=== PATIENT | female | born 1950 | race Caucasian/White ===

== ENCOUNTER 2018-02-26 12:00 | Emergency (ER) | payer MEDICARE ==
[2018-02-26 12:26] VITALS: BP 170/84; PULSE 57; RESP 18; TEMP 97.8
[2018-02-26] MEDS ORDERED: DICYCLOMINE 10 MG/ML 2 ML AMP IM STA (12:46)
[2018-02-26] MEDS ORDERED: SODIUM CHLORIDE 0.9% 1,000 ML IV ONE (12:46)
[2018-02-26] MEDS ORDERED: ONDANSETRON 4 MG/2 ML VIAL IVP STA (12:46)
[2018-02-26] MEDS ORDERED: KETOROLAC 30 MG/ML 1 ML VIAL IVP STA (12:46)
--- NOTE | 2018-02-26 13:09 | ED ---
Nausea/Vomiting/Diarrhea HPI - General Chief complaint: Nausea/Vomiting/Diarrhea Stated complaint: Abd Pain, All over pain Time Seen by Provider: 02/26/18 12:35 Source: patient Mode of arrival: wheelchair Limitations: no limitations - History of Present Illness Initial comments: This is a 67-year-old female who recently moved to the area who presents emergent department for nausea, vomiting, diarrhea, and generalized body aches. She states that the symptoms started this morning and gradually worsened. She states that she's had this in the past and her physicians were unsure what the cause was. She states that she has seen a ice cream scooper in the past however does not see one currently because she just moved here. She does follow with Dr. moreno the she does admit to some nausea and vomiting this morning. Also admits to little bit of diarrhea. She does admit that sometimes this does occur when she is stressed out however will occur at other times as well. She denies any fevers or chills. No dysuria or hematuria. No other acute complaints. - Related Data Home Medications Medication Instructions Recorded Confirmed Atorvastatin Calcium [Lipitor] 20 mg PO HS 02/26/18 02/26/18 DULoxetine HCL [Cymbalta] 20 mg PO HS 02/26/18 02/26/18 Ibuprofen 600 mg PO BID PRN 02/26/18 02/26/18 Levothyroxine Sodium [Synthroid] 50 mcg PO DAILY 02/26/18 02/26/18 Lidocaine HCl [Aspercreme] 1 applic TOPICAL DAILY PRN 02/26/18 02/26/18 traZODone HCL 100 mg PO HS 02/26/18 02/26/18 Previous Rx's Medication Instructions Recorded Dicyclomine [Bentyl] 20 mg PO QID #20 tablet 02/26/18 Ondansetron Odt [Zofran Odt] 4 mg PO Q8HR PRN #12 tab 02/26/18 Allergies Allergy/AdvReac Type Severity Reaction Status Date / Time No Known Allergies Allergy Verified 02/26/18 12:26 Review of Systems ROS Statement: Those systems with pertinent positive or pertinent negative responses have been documented in the HPI. ROS Other: All systems not noted in ROS Statement are negative. Past Medical History Past Medical History: Fibromyalgia, Hyperlipidemia, Rheumatoid Arthritis (RA), Thyroid Disorder Additional Past Medical History / Comment(s): diverticulits History of Any Multi-Drug Resistant Organisms: None Reported Past Surgical History: Hysterectomy Additional Past Surgical History / Comment(s): ear prosthesis Past Psychological History: Depression Smoking Status: Never smoker Past Alcohol Use History: None Reported Past Drug Use History: None Reported General Exam - General Exam Comments Initial Comments: Constitutional: Awake alert Appears comfortable Head: Normocephalic atraumatic Eyes: no conjunctival injection No scleral icterus EOMI Neck: No JVD Supple Heart: Regular rate rhythm normal S1-S2 no murmurs Lungs: Clear to auscultation bilaterally No wheezing No rales Abdomen: Soft nondistended nontender Extremities: Non edematous DP pulses intact Radial pulses intact, patient has diffuse tenderness over multiple joints including her knees and shoulders however no swelling Neuro: A&Ox3 No focal neurologic deficits Psych: Appropriate mood and affect Limitations: no limitations Course Vital Signs 02/26/18 12:21 Temperature 97.8 F Pulse Rate 57 L Respiratory 18 Rate Blood Pressure 170/84 O2 Sat by Pulse 97 Oximetry - Reevaluation(s) Reevaluation #1: 02/26/18 14:44 EKG showing sinus bradycardia with a rate of 50. No abnormal ST segment changes or T-wave inversion. QTC is 432. Other intervals normal. No ectopy. Medical Decision Making - Medical Decision Making Is a 67-year-old female who presented for nausea, vomiting, or diarrhea. The patient felt much improved after medications emergency department. Blood work was reviewed and completely unremarkable. UA negative. Patient was instructed to go home and drink plenty fluids. She will be given Zofran and Bentyl as needed for her symptoms. She was also given GI follow-up since this is a recurring issue for her. Told to return should any worsening or changing symptoms. All questions were answered. - Lab Data Result diagrams: 02/26/18 13:48 02/26/18 13:48 Lab Results 02/26/18 02/26/18 02/26/18 Range/Units 13:48 13:48 15:37 WBC 4.8 (3.8-10.6) k/uL RBC 4.28 (3.80-5.40) m/uL Hgb 13.2 (11.4-16.0) gm/dL Hct 39.8 (34.0-46.0) % MCV 93.0 (80.0-100.0) fL MCH 30.9 (25.0-35.0) pg MCHC 33.2 (31.0-37.0) g/dL RDW 12.7 (11.5-15.5) % Plt Count 156 (150-450) k/uL Neutrophils % 59 % Lymphocytes % 30 % Monocytes % 5 % Eosinophils % 2 % Basophils % 1 % Neutrophils # 2.8 (1.3-7.7) k/uL Lymphocytes # 1.4 (1.0-4.8) k/uL Monocytes # 0.2 (0-1.0) k/uL Eosinophils # 0.1 (0-0.7) k/uL Basophils # 0.1 (0-0.2) k/uL Sodium 139 (137-145) mmol/L Potassium 4.2 (3.5-5.1) mmol/L Chloride 106 (98-107) mmol/L Carbon Dioxide 27 (22-30) mmol/L Anion Gap 6 mmol/L BUN 10 (7-17) mg/dL Creatinine 0.70 (0.52-1.04) mg/dL Est GFR (CKD-EPI)AfAm >90 (>60 ml/min/1.73 sqM) Est GFR (CKD-EPI)NonAf >90 (>60 ml/min/1.73 sqM) Glucose 98 (74-99) mg/dL Calcium 9.2 (8.4-10.2) mg/dL Total Bilirubin 0.4 (0.2-1.3) mg/dL AST 41 H (14-36) U/L ALT 49 (9-52) U/L Alkaline Phosphatase 66 (38-126) U/L Total Protein 6.5 (6.3-8.2) g/dL Albumin 4.0 (3.5-5.0) g/dL Lipase 194 (23-300) U/L Urine Color Colorless Urine Appearance Clear (Clear) Urine pH 7.0 (5.0-8.0) Ur Specific [place] 1.005 (1.001-1.035) Urine Protein Negative (Negative) Urine Glucose (UA) Negative (Negative) Urine Ketones Negative (Negative) Urine Blood Negative (Negative) Urine Nitrite Negative (Negative) Urine Bilirubin Negative (Negative) Urine Urobilinogen <2.0 (<2.0) mg/dL Ur Leukocyte Esterase Negative (Negative) Disposition Clinical Impression: Nausea vomiting and diarrhea Disposition: HOME SELF-CARE Condition: Stable Instructions: Acute Nausea and Vomiting (ED) Prescriptions: Dicyclomine [Bentyl] 20 mg PO QID #20 tablet Ondansetron Odt [Zofran Odt] 4 mg PO Q8HR PRN #12 tab PRN Reason: Nausea Is patient prescribed a controlled substance at d/c from ED?: No Referrals: Jose M Pierre MD [Primary Care Provider] - 1-2 days
[2018-02-26 13:58] LABS: Basophils # (A) 0.1 k/uL (0-0.2); Basophils % (A) 1 %; Eosinophils # (A) 0.1 k/uL (0-0.7); Eosinophils % (A) 2 %; HCT 39.8 % (34.0-46.0); HGB 13.2 gm/dL (11.4-16.0); Lymphocytes # (A) 1.4 k/uL (1.0-4.8); Lymphocytes % (A) 30 %; MCH 30.9 pg (25.0-35.0); MCHC 33.2 g/dL (31.0-37.0); Monocytes # (A) 0.2 k/uL (0-1.0); Monocytes % (A) 5 %; Neutrophils # (A) 2.8 k/uL (1.3-7.7); Neutrophils % (A) 59 %; Platelet Count 156 k/uL (150-450); RBC 4.28 m/uL (3.80-5.40); RDW 12.7 % (11.5-15.5); WBC 4.8 k/uL (3.8-10.6)
[2018-02-26 14:07] LABS: ALT 49 U/L (9-52); AST 41 U/L (14-36); Alkaline Phosphatase 66 U/L (38-126); Anion Gap 6 mmol/L; Blood Urea Nitrogen 10 mg/dL (7-17); Calcium 9.2 mg/dL (8.4-10.2); Carbon Dioxide 27 mmol/L (22-30); Chloride 106 mmol/L (98-107); Glucose 98 mg/dL (74-99); Lipase 194 U/L (23-300); Potassium 4.2 mmol/L (3.5-5.1); Sodium 139 mmol/L (137-145); Total Bilirubin 0.4 mg/dL (0.2-1.3); Total Protein 6.5 g/dL (6.3-8.2)
[2018-02-26 15:45] LABS: Appearance,Urine Clear (Clear); Bilirubin,Urine Negative (Negative); Blood,Urine Negative (Negative); Color,Urine Colorless; Glucose,Urine (UA) Negative (Negative); Ketones,Urine Negative (Negative); Leukocyte Esterase,Urine Negative (Negative); Nitrite,Urine Negative (Negative); Protein,Urine Negative (Negative); Specific Gravity,Urine 1.005 (1.001-1.035); Urobilinogen,Urine <2.0 mg/dL (<2.0)
== END 2018-02-26 16:23 | disposition home or self-care (01) ==
LOC: EC 12:00
DX: R11.2 Nausea with vomiting, unspecified (principal); R19.7 Diarrhea, unspecified; R52 Pain, unspecified; E78.5 Hyperlipidemia, unspecified; E07.9 Disorder of thyroid, unspecified; F32.9 Major depressive disorder, single episode, unspecified; Z79.899 Other long term (current) drug therapy
CPT/HCPCS: 99284; 96374; 96375; 96361; 96372; 36415; 93005; 80053; 83690; 85025; 81003; J0500; J2405; J1885

== ENCOUNTER 2018-08-16 10:39 | Day surgery (SDC) | payer MEDICARE ==
[2018-08-12 10:56] VITALS: BMI 27.8
[~2018-08-16 10:39] MED LIST: LACTATED RINGERS 1,000 ML IV SCH; LIDOCAINE 1% 20 ML VIAL (10MG/ML) FOR IV START INTRADERMA PRN; MIDAZOLAM (PF) 2 MG/2 ML VIAL IV PRN
[2018-08-16 11:00] VITALS: RESP 16; TEMP 97.8
[2018-08-16] MEDS ORDERED: LIDOCAINE 1% INJ 10MG/ML (20 ML MDV) ONE (11:25)
[2018-08-16] MEDS ORDERED: GLYCOPYRROLATE 0.2 MG/ML 2 ML VIAL ONE (11:25)
[2018-08-16] MEDS ORDERED: PROPOFOL 10 MG/ML 20 ML VIAL IV ONE (11:25)
--- NOTE | 2018-08-16 11:50 | P.PCN ---
Date of Procedure: 08/16/18 Procedure(s) Performed: Procedure: Esophagogastroduodenoscopy and biopsy. Preoperative diagnosis: Chronic reflux symptoms requiring therapy. Preoperative diagnosis: 1. Small sliding hiatal hernia with no obvious esophagitis or complicated reflux disease. 2. Mild antral gastritis. 3. Multiple biopsies obtained from the duodenum, antrum and esophagus. Preparation sedation: Was provided by anesthesia. Brief clinical history: The patient is a 67-year-old female who is scheduled for this evaluation because of history of chronic reflux requiring therapy. No alarm symptoms. This evaluation is to assess for esophagitis or complicated reflux disease and to guide therapy. Procedure: With the patient on her left lateral decubitus position and after informed consent and adequate sedation, I passed the Olympus-GIF a 190 video upper endoscope through the cricopharyngeus down the esophagus. GE junction was around 40 cm from the incisors and there was a small sliding hiatal hernia but no obvious esophagitis or Strictures reflux disease. The endoscope was then passed into the stomach which was insufflated with air and inspected in detail including the retroflex view in the cardia. There was some mottling and erythema in the antrum but no ulcers or erosions. Pyloric channel, duodenal bulb, post bulbar area and descending duodenum appeared within normal limits. Because of her symptoms, I obtained biopsies from the duodenum, antrum and esophagus then the endoscope was withdrawn. The patient tolerated the procedure well. Plan: The patient was reassured. Will await biopsy results and make further plans based on her course and biopsy results. I will keep you updated on her progress.
[2018-08-16 12:00] VITALS: BP 145/88; PULSE 79
== END 2018-08-16 12:38 | disposition home or self-care (01) ==
LOC: ORWHC2ENDO 10:39
DX: K29.50 Unspecified chronic gastritis without bleeding (principal); K21.0 Gastro-esophageal reflux disease with esophagitis; K44.9 Diaphragmatic hernia without obstruction or gangrene; M19.90 Unspecified osteoarthritis, unspecified site; I10 Essential (primary) hypertension; E78.5 Hyperlipidemia, unspecified; M79.7 Fibromyalgia; F39 Unspecified mood [affective] disorder; Z79.1 Long term (current) use of non-steroidal anti-inflammatories (NSAID); Z79.890 Hormone replacement therapy; Z79.899 Other long term (current) drug therapy
CPT/HCPCS: 43239; J2001; J2704; 88305; 88342

== ENCOUNTER → 2018-08-23 | Outpatient (CLI) | payer MEDICARE ==
[2018-08-23 13:23] LABS: Basophils # (A) 0.1 k/uL (0-0.2); Basophils % (A) 1 %; Eosinophils # (A) 0.2 k/uL (0-0.7); Eosinophils % (A) 3 %; HCT 40.5 % (34.0-46.0); HGB 13.3 gm/dL (11.4-16.0); Lymphocytes # (A) 1.3 k/uL (1.0-4.8); Lymphocytes % (A) 21 %; MCH 31.4 pg (25.0-35.0); MCHC 32.8 g/dL (31.0-37.0); MCV 95.4 fL (80.0-100.0); Monocytes # (A) 0.3 k/uL (0-1.0); Monocytes % (A) 4 %; Neutrophils # (A) 4.5 k/uL (1.3-7.7); Neutrophils % (A) 70 %; Platelet Count 196 k/uL (150-450); RBC 4.24 m/uL (3.80-5.40); RDW 12.7 % (11.5-15.5); WBC 6.5 k/uL (3.8-10.6)
[2018-08-23 13:28] LABS: Amylase 81 U/L (30-110); Lipase 189 U/L (23-300)
--- NOTE | 2018-08-23 13:38 | CT ---
EXAMINATION TYPE: CT abdomen pelvis wo con DATE OF EXAM: 08/23/2018 HISTORY: Low pelvic/back pain CT DLP: 1061 mGycm. Automated Exposure Control for Dose Reduction was Utilized. TECHNIQUE: CT scan of the abdomen and pelvis is performed without oral or IV contrast. COMPARISON: NONE FINDINGS: Within the limitations of a non-contrast study, the following observations are made. LUNG BASES: Tiny pericardial effusion anteriorly inferiorly is noted. LIVER/GB: Gallbladder has distended margins. PANCREAS: No significant abnormality is seen. SPLEEN: No significant abnormality is seen. ADRENALS: No significant abnormality is seen. KIDNEYS: Right kidney show single 2 mm calculus mid pole level coronal image 53. There is prominence of renal pelvises bilaterally without calyceal dilatation. No left-sided renal calculi are seen. Ther e is asymmetric mild right-sided hydroureter without obstructing calculus clearly seen. No left-sided hydronephrosis obstructing ureter calculi are seen. Distal right ureter slightly more hyperdense mady n expected seen best coronal image 47. Left-sided pelvic phleboliths are seen. No intraluminal calcul us in poorly distended bladder is noted. BOWEL: Low-lying cecum into the right pelvis is noted. No suspicious small or large bowel dilatation is seen. Diverticula in the sigmoid colon are present. Amount of fecal material is somewhat prominent throughout the entire colon. GENITAL ORGANS: Uterus is surgically absent or markedly atrophic. LYMPH NODES: No greater than 1cm abdominal or pelvic lymph nodes are appreciated. OSSEOUS STRUCTURES: Slight grade 1 anterolisthesis L3 on L4. Moderate disc space narrowing with vacuu m disc phenomenon and mild anterior spurring L4-L5 level. Moderate bilateral axial hip joint space lo ss is noted. Transitional-type L5 vertebra is seen. Sclerotic focus left L5 aspect is nonspecific cor onal image 57 favored benign bone island. OTHER: No significant additional abnormality is seen. IMPRESSION: 1. Single 2 mm nonobstructing right renal calculus. Mild diffuse right-sided hydroureter without obst ructing calculus clearly seen. Consider recently passed stone. Presence of diffuse hydroureter with s light hyperdensity distally raises concern for uroepithelial neoplasm particularly if patient has sym ptoms of gross hematuria. Advise urology referral to consider possible follow-up imaging and/or evalu ation.
== END | disposition home or self-care (01) ==
LOC: RADCTMAIN 12:42
PROVIDERS: ATTEND Nurse Practitioner Adult Health
DX: N20.0 Calculus of kidney (principal); N13.4 Hydroureter; R10.9 Unspecified abdominal pain
CPT/HCPCS: 74176; 82150; 83690; 85025

== ENCOUNTER → 2018-10-20 | Outpatient (CLI) | payer MEDICARE ==
--- NOTE | 2018-10-20 12:53 | ECHOS ---
STRESS ECHOCARDIOGRAM INDICATIONS: Dyspnea. MEDICATIONS: Levothyroxine, Cymbalta. BASELINE HEART RATE: 72 BASELINE BLOOD PRESSURE: 139/70 MAXIMUM HEART RATE: 142 MAXIMUM BLOOD PRESSURE: 184/95 85% MPHR: 131 100% MPHR: 154 METS: 5.8 MAXIMUM STAGE REACHED: 2 TOTAL EXERCISE TIME: 4:00 CLINICAL INFORMATION: Baseline EKG revealed normal sinus rhythm without significant ST-T changes. Patient walked on a standard Arik protocol for a total duration of 4 minutes, developed a heart rate of 142 beats per minute which is more than 85% of predicted maximal. She developed fatigue and shortness of breath. Exercise capacity was limited. There was no evidence of any ST-segment changes to indicate ischemia. The patient did not have any angina. There was no significant arrhythmia. By EKG criteria, this is a negative stress test with limited exercise capacity. Resting heart rate was 72 beats per minute peak. Peak heart rate is 142 beats per minute. Resting blood pressure was 139/70 and peak blood pressure was 184/95. By EKG criteria, this is a negative stress test with limited exercise capacity. Baseline echo images revealed normal wall motion and wall thickening of all segments. At peak exercise there was good augmentation of left ventricular wall motion and wall thickening of all segments suggesting that there is no evidence of stress-induced ischemia on this study. MMODL / IJN: [id number] /
== END | disposition home or self-care (01) ==
LOC: RADNMMAIN 09:53
PROVIDERS: ATTEND Family Medicine
DX: R06.00 Dyspnea, unspecified (principal)
CPT/HCPCS: 93351

== ENCOUNTER 2019-03-30 13:30 | Inpatient (IN) | payer MEDICARE ==
[2019-03-30] MEDS ORDERED: SODIUM CHLORIDE 0.9% 500 ML 500 ML IV STA (13:53)
--- NOTE | 2019-03-30 13:58 | ED ---
General Adult HPI - General Chief complaint: Neuro Symptoms/Deficit Stated complaint: trouble speaking/not feeling well Time Seen by Provider: 03/30/19 13:46 Source: patient Mode of arrival: ambulatory Limitations: no limitations - History of Present Illness Initial comments: Dictation was produced using [employer] dictation software. please excuse any grammatical, word or spelling errors. Chief Complaint: 68-year-old female past medical history of fibromyalgia, dyslipidemia and thyroid disease presents with strokelike symptoms. History of Present Illness: Feel she presents with strokelike symptoms. Patient reports that she has been having word finding difficulty starting at 11 AM today. Patient has word finding difficulties. at bedside also endorses this. She does not have any slurred speech. Patient denies any numbness and paresthesia. does note that she does have some mild left facial droop. Denies any headaches. Patient does have bilateral hand paresthesias. The ROS documented in this emergency department record has been reviewed and confirmed by me. Those systems with pertinent positive or negative responses have been documented in the HPI. All other systems are other negative and/or noncontributory. PHYSICAL EXAM: General Impression: Alert and oriented x3, not in acute distress HEENT: Normocephalic atraumatic, extra-ocular movements intact, pupils equal and reactive to light bilaterally, mucous membranes moist. Cardiovascular: Heart regular rate and rhythm, S1&S2 audible, no murmurs, rubs or gallops Chest: Lungs clear to auscultation bilaterally, no rhonchi, no wheeze, no rales Abdomen: Bowel sounds present, abdomen soft, non-tender, non-distended, no organomegaly Musculoskeletal: Pulses present and equal in all extremities, no peripheral edema Motor: no focal deficits noted Neurological: CN II-XII grossly intact, no focal motor or sensory deficits noted Mild left facial droop Skin: Intact with no visualized rashes Psych: Normal affect and mood ED course: 68-year-old female presents with strokelike symptoms starting at 11 AM today. Patient denies any history of stroke. Vital signs upon arrival shows blood pressure 176/101, rest of vital signs within acceptable limits. Patient's NIH is 2. 1.4 finding of the nasolabial fold on the left and 1.4 mild -to-moderate aphasia. Code stroke paged.Abdomen evaluation obtained. CBC, coag panel, metabolic panel is unremarkable. Cardiac enzymes negative. Glucose 100. CT brain and CT angios of the head and neck shows no acute processes. Chest x- ray is nonacute. Discussed patient case with neuro and vascular doctor Dr. Max who does not recommend TPA administration at this time. Patient given aspirin. She'll be admitted with neurology consultation. She understandable agreeable with disposition. She reevaluated bedside and found to be stable medical condition. EKG interpretation: Ventricular rate continues on normal sinus rhythm, WV interval 150, QRS 80, QTc 450. No WV prolongation, no QTC prolongation, no ST or T-wave changes noted. EKG compared to 02/26/2018 showing no changes. Overall, this EKG is unremarkable - Related Data Home Medications Medication Instructions Recorded Confirmed Cholecalciferol [Vitamin D3 (25 5,000 unit PO DAILY 03/30/19 03/30/19 Mcg = 1000 Iu)] DULoxetine HCL [Cymbalta] 30 mg PO BID 03/30/19 03/30/19 Furosemide [Lasix] 20 mg PO DAILY 03/30/19 03/30/19 Hyoscyamine Sulfate [Levsin] 0.125 mg PO Q4H PRN 03/30/19 03/30/19 Lansoprazole [Prevacid] 30 mg PO DAILY 03/30/19 03/30/19 Levothyroxine Sodium [Synthroid] 50 mcg PO DAILY 03/30/19 03/30/19 Testosterone Cypionate 50 mg IM Q14D 03/30/19 03/30/19 [Depo-Testosterone] Allergies Allergy/AdvReac Type Severity Reaction Status Date / Time No Known Allergies Allergy Verified 03/30/19 13:38 Review of Systems ROS Statement: Those systems with pertinent positive or pertinent negative responses have been documented in the HPI. ROS Other: All systems not noted in ROS Statement are negative. Past Medical History Past Medical History: Fibromyalgia, GERD/Reflux, Hyperlipidemia, Osteoarthritis (OA), Thyroid Disorder Additional Past Medical History / Comment(s): pos hx h.pylori,stomach issues and sore throat,diverticulits History of Any Multi-Drug Resistant Organisms: None Reported Past Surgical History: Hysterectomy Additional Past Surgical History / Comment(s): ear prosthesis Past Anesthesia/Blood Transfusion Reactions: No Reported Reaction Past Psychological History: Depression Smoking Status: Never smoker - Past Family History Mother Family Medical History: No Reported History General Exam Limitations: no limitations Course Vital Signs 03/30/19 03/30/19 03/30/19 13:35 14:07 14:15 Temperature 98.1 F 98.1 F Pulse Rate 69 69 66 Respiratory 18 18 20 Rate Blood Pressure 176/101 176/101 167/107 O2 Sat by Pulse 98 98 96 Oximetry 03/30/19 03/30/19 03/30/19 14:22 14:30 14:37 Temperature 97.8 F 98 F Pulse Rate 66 64 63 Respiratory 18 18 16 Rate Blood Pressure 158/95 158/95 158/90 O2 Sat by Pulse 100 98 100 Oximetry 03/30/19 14:52 Temperature 98 F Pulse Rate 71 Respiratory 16 Rate Blood Pressure 183/105 O2 Sat by Pulse 98 Oximetry Medical Decision Making - Lab Data Result diagrams: 03/30/19 13:57 03/30/19 13:57 Lab Results 03/30/19 03/30/19 03/30/19 Range/Units 13:57 13:57 13:57 WBC 6.2 (3.8-10.6) k/uL RBC 4.27 (3.80-5.40) m/uL Hgb 13.2 (11.4-16.0) gm/dL Hct 40.2 (34.0-46.0) % MCV 94.2 (80.0-100.0) fL MCH 31.0 (25.0-35.0) pg MCHC 32.9 (31.0-37.0) g/dL RDW 12.8 (11.5-15.5) % Plt Count 180 (150-450) k/uL Neutrophils % 62 % Lymphocytes % 27 % Monocytes % 5 % Eosinophils % 2 % Basophils % 1 % Neutrophils # 3.8 (1.3-7.7) k/uL Lymphocytes # 1.7 (1.0-4.8) k/uL Monocytes # 0.3 (0-1.0) k/uL Eosinophils # 0.2 (0-0.7) k/uL Basophils # 0.1 (0-0.2) k/uL PT 9.6 (9.0-12.0) sec INR 0.9 (<1.2) APTT 24.5 (22.0-30.0) sec Sodium (137-145) mmol/L Potassium (3.5-5.1) mmol/L Chloride (98-107) mmol/L Carbon Dioxide (22-30) mmol/L Anion Gap mmol/L BUN (7-17) mg/dL Creatinine (0.52-1.04) mg/dL Est GFR (CKD-EPI)AfAm (>60 ml/min/1.73 sqM) Est GFR (CKD-EPI)NonAf (>60 ml/min/1.73 sqM) Glucose (74-99) mg/dL POC Glucose (mg/dL) (75-99) mg/dL POC Glu Canoe Inspector Final ID Calcium (8.4-10.2) mg/dL Total Bilirubin (0.2-1.3) mg/dL AST (14-36) U/L ALT (9-52) U/L Alkaline Phosphatase (38-126) U/L Troponin I <0.012 (0.000-0.034) ng/mL Total Protein (6.3-8.2) g/dL Albumin (3.5-5.0) g/dL 03/30/19 03/30/19 Range/Units 13:57 14:22 WBC (3.8-10.6) k/uL RBC (3.80-5.40) m/uL Hgb (11.4-16.0) gm/dL Hct (34.0-46.0) % MCV (80.0-100.0) fL MCH (25.0-35.0) pg MCHC (31.0-37.0) g/dL RDW (11.5-15.5) % Plt Count (150-450) k/uL Neutrophils % % Lymphocytes % % Monocytes % % Eosinophils % % Basophils % % Neutrophils # (1.3-7.7) k/uL Lymphocytes # (1.0-4.8) k/uL Monocytes # (0-1.0) k/uL Eosinophils # (0-0.7) k/uL Basophils # (0-0.2) k/uL PT (9.0-12.0) sec INR (<1.2) APTT (22.0-30.0) sec Sodium 137 (137-145) mmol/L Potassium 4.4 (3.5-5.1) mmol/L Chloride 104 (98-107) mmol/L Carbon Dioxide 25 (22-30) mmol/L Anion Gap 8 mmol/L BUN 13 (7-17) mg/dL Creatinine 0.67 (0.52-1.04) mg/dL Est GFR (CKD-EPI)AfAm >90 (>60 ml/min/1.73 sqM) Est GFR (CKD-EPI)NonAf >90 (>60 ml/min/1.73 sqM) Glucose 89 (74-99) mg/dL POC Glucose (mg/dL) 100 H (75-99) mg/dL POC Glu Canoe Inspector Final ID [place] Calcium 9.5 (8.4-10.2) mg/dL Total Bilirubin 0.4 (0.2-1.3) mg/dL AST 29 (14-36) U/L ALT 22 (9-52) U/L Alkaline Phosphatase 66 (38-126) U/L Troponin I (0.000-0.034) ng/mL Total Protein 6.8 (6.3-8.2) g/dL Albumin 4.3 (3.5-5.0) g/dL Disposition Clinical Impression: Cerebrovascular accident (CVA) Disposition: ADMITTED IP TO THIS HOSP Condition: Fair Referrals: Mike Lowery MD [Primary Care Provider] - 1-2 days Decision Time: 15:15
[2019-03-30 14:23] LABS: Basophils # (A) 0.1 k/uL (0-0.2); Basophils % (A) 1 %; Eosinophils # (A) 0.2 k/uL (0-0.7); Eosinophils % (A) 2 %; HCT 40.2 % (34.0-46.0); HGB 13.2 gm/dL (11.4-16.0); Lymphocytes # (A) 1.7 k/uL (1.0-4.8); Lymphocytes % (A) 27 %; MCHC 32.9 g/dL (31.0-37.0); MCV 94.2 fL (80.0-100.0); Monocytes # (A) 0.3 k/uL (0-1.0); Monocytes % (A) 5 %; Neutrophils # (A) 3.8 k/uL (1.3-7.7); Neutrophils % (A) 62 %; Platelet Count 180 k/uL (150-450); RBC 4.27 m/uL (3.80-5.40); RDW 12.8 % (11.5-15.5); WBC 6.2 k/uL (3.8-10.6)
--- NOTE | 2019-03-30 14:28 | CT ---
EXAMINATION TYPE: CT brain wo con DATE OF EXAM: 03/30/2019 HISTORY: CODE STROKE Automated Exposure Control for Dose Reduction was Utilized. TECHNIQUE: CT scan of the head is performed without contrast. COMPARISON: None. FINDINGS: There is no acute intracranial hemorrhage or midline shift identified. There is diffuse v entricular and sulcal prominence consistent with diffuse age-related cerebral atrophy. There is low- attenuation in the periventricular white matter presumed on the basis of product of chronic small ves dmitry ischemic change in patient of this age. The globes are intact and the visualized sinuses are lelo ar. IMPRESSION: No acute intracranial hemorrhage or midline shift. There is mild diffuse age-related ce rebral atrophy and fairly advanced white matter changes presumed on basis of product of chronic small vessel ischemic change in patient of this age.
[2019-03-30 14:29] LABS: ALT 22 U/L (9-52); AST 29 U/L (14-36); African American GFR (CKD) >90 (>60 ml/min/1.73 sqM); Albumin 4.3 g/dL (3.5-5.0); Alkaline Phosphatase 66 U/L (38-126); Anion Gap 8 mmol/L; Blood Urea Nitrogen 13 mg/dL (7-17); Calcium 9.5 mg/dL (8.4-10.2); Carbon Dioxide 25 mmol/L (22-30); Chloride 104 mmol/L (98-107); Glucose 89 mg/dL (74-99); Potassium 4.4 mmol/L (3.5-5.1); Sodium 137 mmol/L (137-145); Total Bilirubin 0.4 mg/dL (0.2-1.3); Total Protein 6.8 g/dL (6.3-8.2)
[2019-03-30 14:30] LABS: Glucose,Whole Blood 100 mg/dL (75-99)
[2019-03-30 14:36] LABS: INR 0.9 (<1.2); Partial Thromboplastin Time 24.5 sec (22.0-30.0); Prothrombin Time 9.6 sec (9.0-12.0)
--- NOTE | 2019-03-30 14:56 | CT ---
EXAMINATION TYPE: CT angio head neck DATE OF EXAM: 03/30/2019 HISTORY: CODE STROKE COMPARISON: NONE CT DLP: 1524.50 mGycm. Automated Exposure Control for Dose Reduction was Utilized. TECHNIQUE: CTA scan of the head and neck are performed without and with IV Contrast, patient injecte d with 65 ml mL of Isovue 370, axial images are obtained, coronal and sagittal reformatted images are reviewed. Three-D reconstructed images are created on an independent workstation and reviewed. FINDINGS: Carotid/Vascular Structures: There is three-vessel origin from aortic arch. No significant plaque or stenosis. Right common carotid artery shows normal origin of right brachiocephalic artery. There is n o significant plaque or stenosis of right common or internal carotid arteries including a level carot id bulb. There is a patent external carotid artery without significant plaque or stenosis. No significant plaque or stenosis left common or internal carotid arteries including at level of left carotid bulb. Patent external carotid artery without significant stenosis. There is small caliber right vertebral artery with nonvisualized distal portion. There is dominant le ft vertebral artery patent to basilar artery. No significant stenosis in the posterior circulation. P atent left posterior communicating artery is present. Images of anterior circulation do not show patent anterior communicating artery. There is no signific ant focal stenosis or aneurysmal change identified. Other: No significant incidental finding. IMPRESSION: 1. No significant plaque or stenosis in common or internal carotid arteries bilaterally. 2. No aneurysmal change at the level of [place].
--- NOTE | 2019-03-30 14:57 | XR ---
EXAMINATION TYPE: XR chest 1V portable DATE OF EXAM: 03/30/2019 COMPARISON: NONE HISTORY: Altered mental status and weakness. TECHNIQUE: Single AP portable frontal upright view of the chest is obtained. FINDINGS: There is chronic parenchymal changes without suspicious focal air space opacity, pleural e ffusion, or pneumothorax seen. The cardiac silhouette size is upper limits of normal. Overlying EKG leads are seen. The osseous structures are intact. IMPRESSION: No acute process.
[2019-03-30] MEDS ORDERED: ASPIRIN 81 MG PO STA (14:59)
[2019-03-30] MEDS: SODIUM CHLORIDE 0.9% 1,000 ML IV SCH (15:32)
[2019-03-30] MEDS ORDERED: ACETAMINOPHEN TAB 325 MG TAB PO STA (17:21)
[2019-03-30 21:02] VITALS: BMI 29.2
[2019-03-31] MEDS: SODIUM CHLORIDE 0.9% 1,000 ML IV SCH (01:25)
[2019-03-31] MEDS ORDERED: amLODIPine 5 MG TAB PO ONE (05:15)
[2019-03-31] MEDS: LEVOTHYROXINE 50 MCG TAB PO SCH (06:38)
[2019-03-31 07:27] LABS: Cholesterol 214 mg/dL (<200); HDL Cholesterol 43 mg/dL (40-60); LDL Cholesterol,Calculated 139 mg/dL (0-99); Triglycerides 160 mg/dL (<150)
[2019-03-31] MEDS: ASPIRIN 325 MG TAB PO SCH (08:09)
--- NOTE | 2019-03-31 11:34 | P.CNNES ---
History of Present Illness Consult date: 03/31/19 Reason for Consult: Concern for stroke Chief complaint: Word-finding difficulty, mild L facial droop History of Present Illness: HISTORY OF PRESENT ILLNESS: Thank you for allowing me to evaluate Ms. Princess Dong. Ms. Dong is a 68-year-old R-handed woman with past medical history of fibromyalgia, GERD, hyperlipidemia, osteoarthritis, hypothyroidism, diverticulitis, depression, presenting with word finding difficulty and left facial droop, consulted neurology for concern for stroke. Patient states that around 11:30 am yesterday, she started feeling "off" with walking, when she tried to ask her and a worker about what they'd like to have for lunch, she couldn't quite find the right words. She was trying to say "Quesadilla" but she kept repeating "quesa" without saying the word. Eventually she was able to say the phrase correctly. Her speech symptoms went away after she returned from the CT scanner in the ED. She states that she had a headache last Thursday, which went away after sleeping. Patient also had a 9/10 holocephalic headache, and at the time, her BP was noted to be in SBP 180s. Patient got BP meds only, and her headache improved to a 4/10 pain. She endorses some photophobia but no phonophobia, nausea, vomiting, weakness, numbness or tingling. Patient has been having some numbness in her b/l hands and feet for a long time, and she was told that it was part of her fibromyalgia. patient has seen a neurologist, Dr. Awan, for her symptoms, and he did EMG/NCS which was reported not normal but no diagnosis given. Patient also reports that for years, she's been having "episodes" where she would have droopy eyes, abdominal discomfort, dry heaves, and diarrhea during which she would be "out of commission" for 2 days. She's been getting depo-testosterone shots since about 6 weeks ago, every 2 weeks, to help her with her strength. "droopy eyes" only occurs when she has these episodes, in between, patient does not notice any droopy eyes. Denies ever having similar speech difficulty events. PAST MEDICAL HISTORY: Fibromyalgia, GERD, hyperlipidemia, osteoarthritis, hypothyroidism, diverticulitis, depression, presenting with word finding difficulty and left facial droop, consulted neurology for concern for stroke. PAST SURGICAL HISTORY: Hysterectomy, ear prosthesis HOME MEDICATIONS: Vitamin D, duloxetine, furosemide, Hyoscyamine, levothyroxine, lansoprazole, depo-testosterone ALLERGIES: NKDA SOCIAL HISTORY: Never smoker. EtOH abuse history, quit 3 years ago. FAMILY HISTORY: Father had a stroke. Grandmother had ALS REVIEW OF SYSTEMS: The 14 systems are reviewed and no additional points are identified compared to the review of systems documented history and physical PHYSICAL EXAMINATION: VITAL SIGNS: T 97.8 HR 74 RR 18 BP 166/110 O2 sat 97% on RA GEN.: NAD, pleasant and cooperative HEENT: NCAT, sclera without icterus NECK: Supple SKIN AND EXTREMITIES: Warm to touch, no edema NEURO: MENTAL STATUS: Patient alert and oriented to self, place, time. Able to name the current president. Speech fluent, able to name and repeat, following all commands readily. No right and left disorientation, neglect. CRANIAL NERVES II THROUGH XII: II: Pupils are equal and reactive to light symmetrically. No afferent pupillary defect. Visual gaona are intact. III, IV, : Minimally droopy eyes bilaterally Extraocular movements full. No nystagmus. V: Facial sensation intact from V1-3. VII. Mild L facial droop. VIII: Hearing intact to finger rub bilaterally. IX, X: Symmetric palate elevation. XI: Shoulder shrug intact. XII: Tongue midline without fasciculation or atrophy. MOTOR: Normal bulk/tone. No pronator drift or tremor. Strength is 5/5 t hroughout all 4 extremities. SENSORY: Intact to light touch, temperature, pinprick in all 4 extremities. Romberg is negative. REFLEXES: 2+ throughout. Very sensitive feet, difficulty to assess babinski. Claudia's is absent COORDINATION: Finger to nose intact. No dysmetria. GAIT: Narrow-based and stable. Able to toe/heel/tandem walk DIAGNOSTIC TESTING: LABORATORY: WBC 6.2 hemoglobin 13.2 platelet 180 PT 9.6 INR 0.9 Sodium 137 potassium 4.4 chloride 104, carpal 25 BUN 13 creatinine 0.67 glucose 100 AST 29 ALT 22 alk phos 66 troponin <0.012 Total cholesterol 214 LDL 139 HDL 43 triglycerides 160 IMAGING: CT head without contrast 03/30/2019: No acute intracranial hemorrhage or midline shift. There is mild diffuse age- related cerebral atrophy and fairly advanced white matter changes present on basis of product of chronic small vessel ischemic change and patient of this age. CTA head and neck with contrast 03/31/2019: No significant plaque or stenosis and common or internal carotid arteries bilaterally. No aneurysmal change at the level of [place]. ASSESSMENT: Ms. Dong is a 68-year-old R-handed woman with past medical history of fibromyalgia, GERD, hyperlipidemia, osteoarthritis, hypothyroidism, diverticulitis, depression, presenting with word finding difficulty and left f acial droop, consulted neurology for concern for stroke. L-sided facial droop and speech difficulty possibly localizes to R hemisphere (non-dominant hemisphere) if MRI were to show a stroke, which is unusual, but her symptoms may also correlate with her history of fibromyalgia. Patient has never had MRI brain. Patient with risk factors for stroke, will work-up for stroke and manage. CT Head and CTA Head and Neck unremarkable. RECOMMENDATIONS: 1. MRI brain without contrast 2. Transthoracic echocardiogram 3. Cardiac monitoring (so far, no atrial arrhythmia noted) 4. SBP <160 is okay 5. ASA 81mg qday, Atorvastatin 80mg qhs 6. Labs: A1C, TSH, FLP 7. PT/OT/ST per protocol 8. Discussed with patient about stroke prevention guidelines. Medication compliance, hypertension/diabetes control, lifestyle changes including no smoking, drinking in moderation, losing weight, exercising, eating healthier 9. Neurology will continue to follow 10. Patient will need to follow up with neurologist as outpatient Past Medical History Past Medical History: Fibromyalgia, GERD/Reflux, Hyperlipidemia, Osteoarthritis (OA), Thyroid Disorder Additional Past Medical History / Comment(s): pos hx h.pylori,stomach issues and sore throat,diverticulits History of Any Multi-Drug Resistant Organisms: None Reported Past Surgical History: Hysterectomy Additional Past Surgical History / Comment(s): ear prosthesis Past Anesthesia/Blood Transfusion Reactions: No Reported Reaction Past Psychological History: Anxiety, Depression Smoking Status: Never smoker Past Alcohol Use History: Abuse Additional Past Alcohol Use History / Comment(s): pt states she was treated for alcoholism three years ago. Past Drug Use History: None Reported - Past Family History Mother Family Medical History: Coronary Artery Disease (CAD), Myocardial Infarction ([place]), Renal Disease Additional Family Medical History / Comment(s): 2012 Father Family Medical History: Congestive Heart Failure (CHF), CVA/TIA, Myocardial Infarction ([place]) Additional Family Medical History / Comment(s): [place] in 2006, Medications and Allergies Home Medications Medication Instructions Recorded Confirmed Type Cholecalciferol [Vitamin D3 (25 5,000 unit PO DAILY 03/30/19 03/30/19 History Mcg = 1000 Iu)] DULoxetine HCL [Cymbalta] 30 mg PO BID 03/30/19 03/30/19 History Furosemide [Lasix] 20 mg PO DAILY 03/30/19 03/30/19 History Hyoscyamine Sulfate [Levsin] 0.125 mg PO Q4H PRN 03/30/19 03/30/19 History Lansoprazole [Prevacid] 30 mg PO DAILY 03/30/19 03/30/19 History Levothyroxine Sodium [Synthroid] 50 mcg PO DAILY 03/30/19 03/30/19 History Testosterone Cypionate 50 mg IM Q14D 03/30/19 03/30/19 History [Depo-Testosterone] Allergies Allergy/AdvReac Type Severity Reaction Status Date / Time No Known Allergies Allergy Verified 03/30/19 13:38 Physical Examination - Vital Signs Vital Signs: Vital Signs Temp Pulse Pulse Resp BP BP BP 03/31/19 04:00 97.8 F 74 18 176/112 166/110 03/31/19 00:13 97.8 F 54 L 16 165/85 03/31/19 00:00 97.8 F 54 L 16 165/85 03/30/19 22:13 97.7 F 58 L 16 176/90 03/30/19 21:01 03/30/19 20:13 97.7 F 59 L 18 188/91 03/30/19 20:00 97.7 F 59 L 18 188/91 03/30/19 18:13 98 F 61 18 183/99 03/30/19 17:52 77 16 183/99 03/30/19 16:52 98 F 77 18 175/95 03/30/19 15:52 98 F 58 L 16 182/95 03/30/19 15:12 98 F 63 16 161/99 03/30/19 14:52 98 F 71 16 183/105 03/30/19 14:37 98 F 63 16 158/90 03/30/19 14:30 64 18 158/95 03/30/19 14:22 97.8 F 66 18 158/95 03/30/19 14:15 66 20 167/107 03/30/19 14:07 98.1 F 69 18 176/101 03/30/19 13:35 98.1 F 69 18 176/101 Pulse Ox 03/31/19 04:00 97 03/31/19 00:13 95 03/31/19 00:00 95 03/30/19 22:13 96 03/30/19 21:01 98 03/30/19 20:13 96 03/30/19 20:00 96 03/30/19 18:13 98 03/30/19 17:52 96 03/30/19 16:52 100 03/30/19 15:52 100 03/30/19 15:12 97 03/30/19 14:52 98 03/30/19 14:37 100 03/30/19 14:30 98 03/30/19 14:22 100 03/30/19 14:15 96 03/30/19 14:07 98 03/30/19 13:35 98 Intake and Output 03/30/19 03/31/19 03/31/19 22:59 06:59 14:59 Other: Voiding Method Toilet Toilet # Voids 1 Weight 84.9 kg Results - Laboratory Findings CBC and BMP: 03/30/19 13:57 03/30/19 13:57 Abnormal Lab Findings: Abnormal Labs 03/30/19 03/31/19 14:22 06:45 POC Glucose (mg/dL) 100 H Triglycerides 160 H Cholesterol 214 H LDL Cholesterol, Calc 139 H
[2019-03-31] MEDS: ACETAMINOPHEN TAB 500 MG TAB PO PRN ×2 (17:51→23:42)
[2019-03-31] MEDS ORDERED: NAPROXEN 250 MG TAB PO STA (18:17)
[2019-03-31 18:46] LABS: Glucose,Whole Blood 93 mg/dL (75-99)
[2019-03-31] MEDS ORDERED: LABETALOL 5 MG/ML VIAL MDV IVP PRN (20:57)
--- NOTE | 2019-03-31 22:40 | P.HPIM ---
History of Present Illness H&P Date: 03/31/19 Chief Complaint: Difficulty finding words History of present complaint: This is a 68-year-old patient of Dr. Mike Lowery. Chronic stable medical conditions include fibromyalgia, GERD, hyperlipidemia, Gavin arthritis, hypothyroid thyroid. Patient yesterday close to known which is feeling off- balance and just not feeling right. She did walk to the family and wanted to say quesadillas but he was unable to choose the right words.. Also felt a bit blurring of the vision. And felt that the brain was in a fog. Is also some paresthesia in both the hands. This morning when patient was seen by me in patient is still not feeling back to normal self. Being admitted for the same. Neuro checks were done. Neurology was consulted. Review of systems: GEN.: Tired EYES: None HEENT: None NECK: None RESPIRATORY: None CARDIOVASCULAR: None GASTROINTESTINAL: None GENITOURINARY: None MUSCULOSKELETAL: Joint pains LYMPHATICS: None HEMATOLOGICAL: None PSYCHIATRY: None NEUROLOGICAL: As above Social history: . Was drinking significant amount of alcohol to about 3 years ago. At that time, She would have a bottle of wine and sometimes beer and whiskey along with that. No smoking. Physical examination: VITAL SIGNS: 98.1, 69, 18, 176/101, 98% room air GENERAL: BMI 29.3, sitting up awake. EYES: Pupils equal. Conjunctiva normal. HEENT: External appearance of nose and ears normal, oral cavity grossly normal. NECK: JVD not raised; masses not palpable. HEART: First and second heart sounds are normal; no edema. LUNGS: Respiratory rate normal; clear to auscultation. ABDOMEN: Soft, nontender, liver spleen not palpable, no masses palpable. PSYCH: Alert and oriented x3; mood and affect normal. NEUROLOGICAL: Cranial nerves grossly intact; no facial asymmetry, power and sensation grossly intact, still complaining of sometimes difficult finding word s. LYMPHATICS: No lymph nodes palpable in the axilla and neck INVESTIGATIONS, reviewed in the clinical context: White count 6.2 hemoglobin 13.2 platelets 180 potassium 4.4 creatinine 0.67 LDL 139 triglycerides 160 EKG tracing personally reviewed by me- normal sinus rhythm Computed tomography scan of brain-some age-related changes Chest x-ray finding-personally reviewed by me-shows some possible chronic changes Assessment: -This is a patient presents with finding difficulty or words, for close to 24 hours, including some blurring of the vision with initial computed tomography scan being negative. Stroke still history be ruled out. Otherwise TIA. -Chronic fibromyalgia -GERD -Hyperlipidemia -Primary osteoarthritis -Hypothyroid -Hypertensive urgency Plan: Patient is on aspirin. We'll also add Lipitor. Lovenox for DVT prophylaxis. Home medications were resumed. Neuro checks in place. Neurology was consulted. MRI and 2-D echo was ordered. Care was discussed in detail with the patient. Past Medical History Past Medical History: Fibromyalgia, GERD/Reflux, Hyperlipidemia, Osteoarthritis (OA), Thyroid Disorder Additional Past Medical History / Comment(s): pos hx h.pylori,stomach issues and sore throat,diverticulits, migraine once every few years, pt reports having stress headaches. History of Any Multi-Drug Resistant Organisms: None Reported Past Surgical History: Hysterectomy Additional Past Surgical History / Comment(s): ear prosthesis Past Anesthesia/Blood Transfusion Reactions: No Reported Reaction Past Psychological History: Anxiety, Depression Smoking Status: Never smoker Past Alcohol Use History: Abuse Additional Past Alcohol Use History / Comment(s): pt states she was treated for alcoholism three years ago. Past Drug Use History: None Reported - Past Family History Mother Family Medical History: Coronary Artery Disease (CAD), Myocardial Infarction ([place]), Renal Disease Additional Family Medical History / Comment(s): 2012 Father Family Medical History: Congestive Heart Failure (CHF), CVA/TIA, Myocardial Infarction ([place]) Additional Family Medical History / Comment(s): [place] in 2005, Medications and Allergies Home Medications Medication Instructions Recorded Confirmed Type Cholecalciferol [Vitamin D3 (25 5,000 unit PO DAILY 03/30/19 03/30/19 History Mcg = 1000 Iu)] DULoxetine HCL [Cymbalta] 30 mg PO BID 03/30/19 03/30/19 History Furosemide [Lasix] 20 mg PO DAILY 03/30/19 03/30/19 History Hyoscyamine Sulfate [Levsin] 0.125 mg PO Q4H PRN 03/30/19 03/30/19 History Lansoprazole [Prevacid] 30 mg PO DAILY 03/30/19 03/30/19 History Levothyroxine Sodium [Synthroid] 50 mcg PO DAILY 03/30/19 03/30/19 History Testosterone Cypionate 50 mg IM Q14D 03/30/19 03/30/19 History [Depo-Testosterone] Allergies Allergy/AdvReac Type Severity Reaction Status Date / Time No Known Allergies Allergy Verified 03/30/19 13:38 Physical Exam Vitals: Vital Signs Temp Pulse Pulse Resp BP BP BP 03/31/19 04:00 97.8 F 74 18 176/112 166/110 03/31/19 00:13 97.8 F 54 L 16 165/85 03/31/19 00:00 97.8 F 54 L 16 165/85 03/30/19 22:13 97.7 F 58 L 16 176/90 03/30/19 21:01 03/30/19 20:13 97.7 F 59 L 18 188/91 03/30/19 20:00 97.7 F 59 L 18 188/91 03/30/19 18:13 98 F 61 18 183/99 03/30/19 17:52 77 16 183/99 03/30/19 16:52 98 F 77 18 175/95 03/30/19 15:52 98 F 58 L 16 182/95 03/30/19 15:12 98 F 63 16 161/99 03/30/19 14:52 98 F 71 16 183/105 03/30/19 14:37 98 F 63 16 158/90 03/30/19 14:30 64 18 158/95 03/30/19 14:22 97.8 F 66 18 158/95 03/30/19 14:15 66 20 167/107 03/30/19 14:07 98.1 F 69 18 176/101 03/30/19 13:35 98.1 F 69 18 176/101 Pulse Ox 03/31/19 04:00 97 03/31/19 00:13 95 03/31/19 00:00 95 03/30/19 22:13 96 03/30/19 21:01 98 03/30/19 20:13 96 03/30/19 20:00 96 03/30/19 18:13 98 03/30/19 17:52 96 03/30/19 16:52 100 03/30/19 15:52 100 03/30/19 15:12 97 03/30/19 14:52 98 03/30/19 14:37 100 03/30/19 14:30 98 03/30/19 14:22 100 03/30/19 14:15 96 03/30/19 14:07 98 03/30/19 13:35 98 Intake and Output 03/30/19 03/31/19 03/31/19 22:59 06:59 14:59 Other: Voiding Method Toilet Toilet # Voids 1 Weight 84.9 kg Results CBC & Chem 7: 03/30/19 13:57 03/30/19 13:57 Labs: Abnormal Lab Results - Last 24 Hours (Table) 03/30/19 03/31/19 Range/Units 14:22 06:45 POC Glucose (mg/dL) 100 H (75-99) mg/dL Triglycerides 160 H (<150) mg/dL Cholesterol 214 H (<200) mg/dL LDL Cholesterol, Calc 139 H (0-99) mg/dL Thrombosis Risk Factor Assmnt - Choose All That Apply Any of the Below Risk Factors Present?: Yes Each Factor Represents 1 point: Obesity (BMI >25) Other Risk Factors: Yes Each Risk Factor Represents 2 Points: Age 61-74 years Other congenital or acquired thrombophilia - If yes, enter type in comment: No Thrombosis Risk Factor Assessment Total Risk Factor Score: 3 Thrombosis Risk Factor Assessment Level: Moderate Risk
[2019-03-31] MEDS: ENOXAPARIN 40 MG/0.4 ML SYRINGE SQ SCH (23:43)
[2019-03-31] MEDS: ATORVASTATIN 40 MG TAB PO SCH (23:43)
[2019-04-01] MEDS: SODIUM CHLORIDE 0.9% 1,000 ML IV SCH (00:51)
[2019-04-01] MEDS: DULoxetine HCL 30 MG CAPSULE.DR PO SCH ×3 (00:53→21:05)
[2019-04-01] MEDS: LISINOPRIL-HCTZ 10-12.5 MG 1 EACH TAB PO SCH ×3 (01:00→21:05)
[2019-04-01] MEDS: ACETAMINOPHEN TAB 500 MG TAB PO PRN ×2 (05:31→10:59)
[2019-04-01] MEDS: LEVOTHYROXINE 50 MCG TAB PO SCH (05:33)
[2019-04-01] MEDS: ASPIRIN 325 MG TAB PO SCH (08:55)
[2019-04-01] MEDS: ENOXAPARIN 40 MG/0.4 ML SYRINGE SQ SCH (08:56)
--- NOTE | 2019-04-01 11:01 | CT ---
EXAMINATION TYPE: CODE STROKE: CT brain wo contr DATE OF EXAM: 03/31/2019 COMPARISON: 03/30/2019 INDICATION: Weakness code stroke DLP: 1095.4 mGycm, Automated exposure control for dose reduction was used. CONTRAST: None CT of the brain is performed utilizing 3 mm thick sections through the posterior fossa and 3 mm thick sections through the remaining calvarium. Study is performed within 24 hours of arrival to the hosp [facility]. No abnormal hyperdensity is present to suggest an acute intracranial hemorrhage. No mass lesion is evident. No acute infarcts are evident. There is patchy chronic appearing periventricular white matter hypoint ensity most likely on the basis of chronic white matter ischemic changes. Ventricles and sulci are appropriate for the patient age. Paranasal sinuses and mastoid air cells within the [id number] are clear. Exam is stable from comparison. IMPRESSIONS: 1. Chronic appearing periventricular white matter ischemic changes. 2. No acute intracranial process. 3. Preliminary results were provided by the on-call radiologist.
[2019-04-01 11:50] LABS: Glucose,Whole Blood 109 mg/dL (75-99)
[2019-04-01 14:10] LABS: T4, Free (Free Thyroxine) 1.07 ng/dL (0.78-2.19)
[2019-04-01] MEDS ORDERED: PROCHLORPERAZINE 5 MG TAB PO STA (14:18)
[2019-04-01] MEDS ORDERED: KETOROLAC 30 MG/ML 1 ML VIAL IVP STA (14:18)
--- NOTE | 2019-04-01 14:39 | ECHOF ---
Referral Reason:concern for stroke MEASUREMENTS -------- HEIGHT: 170.2 cm WEIGHT: 84.8 kg BP: 166/110 RVIDd: 3.1 cm (< 3.3) IVSd: 1.2 cm (0.6 - 1.1) LVIDd: 3.7 cm (3.9 - 5.3) LVPWd: 1.3 cm (0.6 - 1.1) IVSs: 1.4 cm LVIDs: 3.2 cm LVPWs: 1.4 cm LA Diam: 4.3 cm (2.7 - 3.8) LAESV Index (A-L): 30.02 ml/m Ao Diam: 2.5 cm (2.0 - 3.7) AV Cusp: 1.8 cm (1.5 - 2.6) LA Diam: 3.7 cm (2.7 - 3.8) MV EXCURSION: 19.523 mm (> 18.000) MV EF SLOPE: 69 mm/s (70 - 150) EPSS: 0.3 cm MV E Mike: 0.43 m/s MV DecT: 244 ms MV A Mike: 0.84 m/s MV E/A Ratio: 0.50 RAP: 5.00 mmHg RVSP: 15.39 mmHg TAPSE: 19.91 mm FINDINGS -------- Sinus rhythm. This was a technically adequate study. The left ventricular size is normal. There is mild concentric left ventricular hypertrophy. Overa ll left ventricular systolic function is normal with, an EF between 55 - 60 %. The right ventricle is normal in size. The left atrium is mildly dilated. LA is midly dilated 29-33ml/m2. The right atrial size is normal. The aortic valve is trileaflet, and appears structurally normal. No aortic stenosis or regurgitation. Mild mitral regurgitation is present. Mild tricuspid regurgitation present. Right ventricular systolic pressure is normal at < 35 mmHg. There is no evidence of pulmonary hypertension. There is no pulmonic regurgitation present. The aortic root size is normal. There is no pericardial effusion. CONCLUSIONS -------- 1. Sinus rhythm. 2. This was a technically adequate study. 3. The left ventricular size is normal. 4. There is mild concentric left ventricular hypertrophy. 5. Overall left ventricular systolic function is normal with, an EF between 55 - 60 %. 6. The right ventricle is normal in size. 7. The left atrium is mildly dilated. 8. LA is midly dilated 29-33ml/m2. 9. The right atrial size is normal. 10. The aortic valve is trileaflet, and appears structurally normal. No aortic stenosis or regurgitat ion. 11. Mild mitral regurgitation is present. 12. Mild tricuspid regurgitation present. 13. Right ventricular systolic pressure is normal at < 35 mmHg. 14. There is no evidence of pulmonary hypertension. 15. There is no pulmonic regurgitation present. 16. The aortic root size is normal. 17. There is no pericardial effusion. DIRECTOR CORPORATE COMMUNICATIONS: Aisha Farah RDCS
[2019-04-01] MEDS: MAGNESIUM SULFATE-D5W PMX 1 GM in DEXTROSE/WATER 1 100ML.BAG IVPB SCH ×2 (15:02→17:40)
--- NOTE | 2019-04-01 15:17 | P.PN ---
Progress Note - Text Progress Note Date: 04/01/19 SUBJECTIVE/INTERVAL EVENTS: Stroke code was called last night. Pt reported significant headache along with having R facial droop. Patient had a 9/10 holocephalic headache during this episode along with high blood pressure. Her blood pressure resolved with no PRN antihypertensives. Patient at this time complaining of 6/10 holocephalic headache, significant photophobia. Patient also having issues with strong smell like cologne that worsens her headache. Patient has had episodes of migraine before, but maybe once several years. She had migraines as a teenager as well. No hx of migraine in her family. 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 Patient reports that with her headache, her L jaw hurt. No blurry/double vision. Patient is having tenderness to palpation in the L temporal bone area. PHYSICAL EXAMINATION: VITAL SIGNS: T 97.9 HR 62 RR 18 BP 145/76 O2 sat 93% on RA GEN.: NAD, pleasant and cooperative HEENT: NCAT, sclera without icterus NECK: Supple SKIN AND EXTREMITIES: Warm to touch, no edema NEURO: MENTAL STATUS: Patient alert and oriented to self, place, time. Able to name the current president. Speech fluent, able to name and repeat, following all commands readily. No right and left disorientation, neglect. CRANIAL NERVES II THROUGH XII: II: Pupils are equal and reactive to light symmetrically. No afferent pupillary defect. Visual gaona are intact. III, IV, : Minimally droopy eyes bilaterally Extraocular movements full. No nystagmus. V: Facial sensation intact from V1-3. VII. Mild L facial droop. VIII: Hearing intact to finger rub bilaterally. IX, X: Symmetric palate elevation. XI: Shoulder shrug intact. XII: Tongue midline without fasciculation or atrophy. MOTOR: Normal bulk/tone. No pronator drift or tremor. Strength is 5/5 throughout all 4 extremities. SENSORY: Intact to light touch, temperature, pinprick in all 4 extremities. Romberg is negative. REFLEXES: 2+ throughout. Very sensitive feet, difficulty to assess babinski. Claudia's is absent COORDINATION: Finger to nose intact. No dysmetria. GAIT: Narrow-based and stable. Able to toe/heel/tandem walk DIAGNOSTIC TESTING: LABORATORY: WBC 6.2 hemoglobin 13.2 platelet 180 PT 9.6 INR 0.9 Sodium 137 potassium 4.4 chloride 104, carpal 25 BUN 13 creatinine 0.67 glucose 100 AST 29 ALT 22 alk phos 66 troponin <0.012 Total cholesterol 214 LDL 139 HDL 43 triglycerides 160 TSH 6.583 T4 1.07 IMAGING: Transthoracic echocardiogram 03/31/2019: Sinus rhythm. LV/RV/RA sizes are normal. LA is mildly dilated. EF 55-60% CT head without contrast 03/30/2019: No acute intracranial hemorrhage or midline shift. There is mild diffuse age- related cerebral atrophy and fairly advanced white matter changes present on basis of product of chronic small vessel ischemic change and patient of this age. CTA head and neck with contrast 03/31/2019: No significant plaque or stenosis and common or internal carotid arteries bilaterally. No aneurysmal change at the level of steb[place] of [place]. ASSESSMENT: Ms. Dong is a 68-year-old R-handed woman with past medical history of fibromyalgia, GERD, hyperlipidemia, osteoarthritis, hypothyroidism, diverticulitis, depression, presenting with word finding difficulty and left facial droop, consulted neurology for concern for stroke. L-sided facial droop and speech difficulty possibly localizes to R hemisphere (non-dominant hemisphere) if MRI were to show a stroke, which is unusual, but her symptoms may also correlate with her history of fibromyalgia. Patient has never had MRI brain. Patient with risk factors for stroke, will work-up for stroke and manage. CT Head and CTA Head and Neck unremarkable. RECOMMENDATIONS: 1. MRI brain without contrast (pending MRI compatibility from [facility]; Dr. Skyler Schneider is not in clinic; nurse will get in touch with MD contaminated land consultant to discuss) 2. We'll give migraine cocktail with Toradol, Compazine, magnesium IV. 3. Will check ESR as well for concern of possible temporal arteritis although patient with no visual deficits. 4. We'll start low-dose Topamax 25 mg twice a day for migraine prophylaxis 5. Patient should be started on magnesium oxide 400 mg twice a day and vitamin B2 400 mg daily for migraine prophylaxis as outpatient 6. Cardiac monitoring (so far, no atrial arrhythmia noted) 7. SBP <160 is okay; pt on lisinopril-hctz 10-12.5 mg 8. ASA 81mg qday, Atorvastatin 80mg qhs 9. Labs: A1C 10. Discussed with patient about stroke prevention guidelines. Medication compliance, hypertension/diabetes control, lifestyle changes including no smoking, drinking in moderation, losing weight, exercising, eating healthier 11. Patient will need to follow up with neurologist as outpatient 12. Neurology is not available over the weekend. However, feel free to [employer] message me over the weekend if you have any questions or concerns
[2019-04-01] MEDS ORDERED: DEXAMETHASONE SOD PHOSPHATE 10 MG/ML 1 ML VIAL IV STA (18:03)
[2019-04-01 18:52] LABS: Hemoglobin A1C 5.8 % (4.0-6.0)
[2019-04-01] MEDS: TOPIRAMATE 25 MG TAB PO SCH (21:05)
[2019-04-01] MEDS: ATORVASTATIN 40 MG TAB PO SCH (21:05)
--- NOTE | 2019-04-01 22:49 | P.PN ---
Progress Note - Text Progress Note Date: 04/01/19 Interval history: This is a 68-year-old patient of Dr. Mike Lowery. Chronic stable medical con ditions include fibromyalgia, GERD, hyperlipidemia, Gavin arthritis, hypothyroid thyroid. Patient yesterday close to known which is feeling off-balance and just not feeling right. She did walk to the family and wanted to say quesadillas but he was unable to choose the right words.. Also felt a bit blurring of the vision. And felt that the brain was in a fog. Is also some paresthesia in both the hands. This morning when patient was seen by me in patient is still not feeling back to normal self. Being admitted for the same. Neuro checks were done. Neurology was consulted. Admitted with possible stroke. Today-patient is having headache. Possible migraine by neurology. Started on Topamax. Because of possible metal in the middle ear surgery done at [facility] in [place], awaiting information on the same MRI is pending. No new symptoms. Review of systems: Was done for constitutional, cardiovascular, GI, pulmonary. Neurology, relevant finding as above Active Medications Acetaminophen (Tylenol Tab) 500 mg PO Q6HR PRN PRN Reason: Fever and/ or Pain Last Admin: 04/01/19 10:59 Dose: 500 mg Documented by: Aspirin (Aspirin) 81 mg PO DAILY [facility] Atorvastatin Calcium (Lipitor) 40 mg PO HS [facility] Last Admin: 04/01/19 21:05 Dose: 40 mg Documented by: Duloxetine HCl (Cymbalta) 30 mg PO BID [facility] Last Admin: 04/01/19 21:05 Dose: 30 mg Documented by: Enoxaparin Sodium (Lovenox) 40 mg SQ DAILY [facility] Last Admin: 04/01/19 08:56 Dose: 40 mg Documented by: Lisinopril/HCTZ (Zestoretic 10-12.5) 1 each PO BID [facility] Last Admin: 04/01/19 21:05 Dose: 1 each Documented by: Labetalol HCl (Trandate) 10 mg IVP Q6HR PRN PRN Reason: Blood Pressure - High Levothyroxine Sodium (Synthroid) 50 mcg PO DAILY@0630 [facility] Last Admin: 04/01/19 05:33 Dose: 50 mcg Documented by: Topiramate (Topamax) 25 mg PO BID [facility] Last Admin: 04/01/19 21:05 Dose: 25 mg Documented by: Physical examination: VITAL SIGNS: 97.9, 62, 18, 145 was 36, 93% room air GENERAL: Laying in bed, but tired EYES: Pupils equal. Conjunctiva normal. HEENT: External appearance of nose and ears normal, oral cavity grossly normal. NECK: JVD not raised; masses not palpable. HEART: First and second heart sounds are normal; no edema. LUNGS: Respiratory rate normal; clear to auscultation. ABDOMEN: Soft, nontender, liver spleen not palpable, no masses palpable. PSYCH: Alert and oriented x3; mood and affect normal. NEUROLOGICAL: Cranial nerves grossly intact; no facial asymmetry, power and sensation grossly intact, still complaining of sometimes difficult finding w ords. INVESTIGATIONS, reviewed in the clinical context: Computed tomography scan of brain-this morning negative Admission testing: White count 6.2 hemoglobin 13.2 platelets 180 potassium 4.4 creatinine 0.67 LDL 139 triglycerides 160 EKG tracing personally reviewed by me- normal sinus rhythm Computed tomography scan of brain-some age-related changes Chest x-ray finding-personally reviewed by me-shows some possible chronic changes Assessment: -This is a patient presents with finding difficulty or words, for close to 24 hours, including some blurring of the vision with initial computed tomography scan being negative. Stroke still history be ruled out. Otherwise TIA. -Chronic fibromyalgia -GERD -Hyperlipidemia -Primary osteoarthritis -Hypothyroid -Hypertensive urgency -Migraine Plan: Patient started on Topamax by neurology. Awaiting MRI. Other medications to continue. He discussed with the patient and .
[2019-04-02] MEDS: LEVOTHYROXINE 50 MCG TAB PO SCH (08:17)
[2019-04-02] MEDS: DULoxetine HCL 30 MG CAPSULE.DR PO SCH ×2 (08:43→20:32)
[2019-04-02] MEDS: LISINOPRIL-HCTZ 10-12.5 MG 1 EACH TAB PO SCH ×2 (08:43→20:32)
[2019-04-02] MEDS: TOPIRAMATE 25 MG TAB PO SCH ×2 (08:43→20:32)
[2019-04-02] MEDS: ASPIRIN 81 MG PO SCH (08:43)
[2019-04-02] MEDS: ENOXAPARIN 40 MG/0.4 ML SYRINGE SQ SCH (08:44)
[2019-04-02] MEDS: ACETAMINOPHEN TAB 500 MG TAB PO PRN (10:29)
--- NOTE | 2019-04-02 16:38 | MR ---
EXAMINATION TYPE: MR brain wo con DATE OF EXAM: 04/02/2019 COMPARISON: HISTORY: No prior, difficulty finding words, memory for about 4 days Standard multiplanar, multisequence MRI departmental protocol Multiplanar, multisequence images of the brain were acquired. Diffusion weighted imaging was performe d. FINDINGS: There is mild cerebral cortical atrophy. On the T2 and FLAIR images there is extensive patc hy increased signal in the periventricular white matter. There is coalescent areas that measure up to 1.5 cm. There is 5 mm focus of increased signal in the left thalamus. Diffusion images show no evide nce of cortical infarct. The brainstem is intact. The corpus callosum is intact. Sella turcica appear s normal. IMPRESSION: Extensive coalescent increased signal in the periventricular white matter. I would consider both radiologic technologist zita small vessel ischemia as well as demyelinating disease. No cortical infarct.
--- NOTE | 2019-04-02 17:02 | P.PN ---
Progress Note - Text Progress Note Date: 04/02/19 Interval history: This is a 68-year-old patient of Dr. Mike Lowery. Chronic stable medical con ditions include fibromyalgia, GERD, hyperlipidemia, Gavin arthritis, hypothyroid thyroid. Patient yesterday close to known which is feeling off-balance and just not feeling right. She did walk to the family and wanted to say quesadillas but he was unable to choose the right words.. Also felt a bit blurring of the vision. And felt that the brain was in a fog. Is also some paresthesia in both the hands. This morning when patient was seen by me in patient is still not feeling back to normal self. Being admitted for the same. Neuro checks were done. Neurology was consulted. Admitted with possible stroke. Also started on Topamax for headache./Migraine. Today-was doing better. Up in the hallway. Did have a headache again. Laying down. Did tolerate her diet. Pending information so that MRI can be done. Review of systems: Was done for constitutional, cardiovascular, GI, pulmonary. Neurology, relevant finding as above Active Medications Acetaminophen (Tylenol Tab) 500 mg PO Q6HR PRN PRN Reason: Fever and/ or Pain Last Admin: 04/02/19 10:29 Dose: 500 mg Documented by: Aspirin (Aspirin) 81 mg PO DAILY [facility] Last Admin: 04/02/19 08:43 Dose: 81 mg Documented by: Atorvastatin Calcium (Lipitor) 40 mg PO HS [facility] Last Admin: 04/01/19 21:05 Dose: 40 mg Documented by: Duloxetine HCl (Cymbalta) 30 mg PO BID [facility] Last Admin: 04/02/19 08:43 Dose: 30 mg Documented by: Enoxaparin Sodium (Lovenox) 40 mg SQ DAILY [facility] Last Admin: 04/02/19 08:44 Dose: 40 mg Documented by: Lisinopril/HCTZ (Zestoretic 10-12.5) 1 each PO BID [facility] Last Admin: 04/02/19 08:43 Dose: 1 each Documented by: Labetalol HCl (Trandate) 10 mg IVP Q6HR PRN PRN Reason: Blood Pressure - High Levothyroxine Sodium (Synthroid) 50 mcg PO DAILY@0630 [facility] Last Admin: 04/02/19 08:17 Dose: Not Given Documented by: Topiramate (Topamax) 25 mg PO BID [facility] Last Admin: 04/02/19 08:43 Dose: 25 mg Documented by: Physical examination: VITAL SIGNS: 98.1, 83, 16, 1 31 x 83, 96% room air GENERAL: Laying in bed, tired EYES: Pupils equal. Conjunctiva normal. HEENT: External appearance of nose and ears normal, oral cavity grossly normal. NECK: JVD not raised; masses not palpable. HEART: First and second heart sounds are normal; no edema. LUNGS: Respiratory rate normal; clear to auscultation. ABDOMEN: Soft, nontender, liver spleen not palpable, no masses palpable. PSYCH: Alert and oriented x3; mood and affect normal. NEUROLOGICAL: Cranial nerves grossly intact; no facial asymmetry, power and sensation grossly intact, still complaining of sometimes difficult finding words. INVESTIGATIONS, reviewed in the clinical context: Computed tomography scan of brain-this morning negative Admission testing: White count 6.2 hemoglobin 13.2 platelets 180 potassium 4.4 creatinine 0.67 LDL 139 triglycerides 160 EKG tracing personally reviewed by me- normal sinus rhythm Computed tomography scan of brain-some age-related changes Chest x-ray finding-personally reviewed by me-shows some possible chronic changes Assessment: -This is a patient presents with finding difficulty or words, for close to 24 hours, including some blurring of the vision with initial computed tomography scan being negative. Stroke ruled out. Otherwise TIA. -Chronic fibromyalgia -GERD -Hyperlipidemia -Primary osteoarthritis -Hypothyroid -Hypertensive urgency -Migraine Plan: On Topamax. Ending MRI. Other medications to continue. Encouraged to ambulate been feeling better. Intermittent headache.
[2019-04-02] MEDS: ATORVASTATIN 40 MG TAB PO SCH (20:32)
[2019-04-02] MEDS ORDERED: LACTULOSE 20 GM/30 ML CUP PO ONE (20:37)
[2019-04-02] MEDS ORDERED: MELATONIN 3 MG TABLET PO SCH (21:00)
[2019-04-03] MEDS: LEVOTHYROXINE 50 MCG TAB PO SCH (05:46)
[2019-04-03] MEDS: TOPIRAMATE 25 MG TAB PO SCH (08:16)
[2019-04-03] MEDS: ENOXAPARIN 40 MG/0.4 ML SYRINGE SQ SCH (08:16)
[2019-04-03] MEDS: LISINOPRIL-HCTZ 10-12.5 MG 1 EACH TAB PO SCH (08:16)
[2019-04-03] MEDS: DULoxetine HCL 30 MG CAPSULE.DR PO SCH (08:16)
[2019-04-03] MEDS: ASPIRIN 81 MG PO SCH (08:16)
[2019-04-03 08:20] VITALS: BP 106/72; PULSE 76; RESP 16; TEMP 97.2
--- NOTE | 2019-04-03 09:19 | P.PN ---
Progress Note - Text Progress Note Date: 04/03/19 I did not see the patient today. Reviewed patient's chart, MRI brain done. I reviewed MRI brain myself, extensive leukoariosis, most likely due to microvascular ischemic disease. Progress notes from yesterday says patient has been doing better with headache. I gave her a dose a dexamethasone 10mg IV x1. Will order medrol-dose dangelo. Will also start MgOx 400mg BID for migraine prophylaxis Patient should purchase Vitamin B2 (riboflavin) 400mg qday for migraine prophylaxis. Neurology will sign off at this time. Patient can be discharged from neurological perspective. Patient needs outpatient Neurology follow up within 2-3 weeks of discharge.
[2019-04-03] MEDS ORDERED: MAGNESIUM OXIDE 400 MG TAB PO SCH (09:30)
[2019-04-03] MEDS ORDERED: methylPREDNISolone 4 MG TAB TAPER PO SCH (10:00)
--- NOTE | 2019-04-03 21:53 | P.DS ---
Providers Date of admission: 03/30/19 15:12 Expected date of discharge: 04/03/19 Attending physician: Jimi Lopez Consults: 03/30/19 15:00 Consult Physician Routine Consulting Provider: Christa Mahmood Consult Reason/Comments: stroke symptoms Do you want consulting provider notified?: Yes Primary care physician: Mike Lowery [place] Hospital Course: Hospital course: This is a 68-year-old patient of Dr. Mike Lowery. Chronic stable medical conditions include fibromyalgia, GERD, hyperlipidemia, Gavin arthritis, hypothyroid thyroid. Patient yesterday close to known which is feeling off- balance and just not feeling right. She did walk to the family and wanted to say quesadillas but he was unable to choose the right words.. Also felt a bit blurring of the vision. And felt that the brain was in a fog. Is also some paresthesia in both the hands. This morning when patient was seen by me in patient is still not feeling back to normal self. Being admitted for the same. Neuro checks were done. Neurology was consulted. MRI showed extensive: Some increased signal in the periventricular white matter. Differential includes chronic small vessel ischemia as well as demyelinating disease. No cortical infarct. We will have patient follow up at outpatient neurology. Patient had a Completely resolve. Patient also had a computed tomography scan of the brain, 2-D echo, CT angiogram the brain. All unremarkable. Patient up and about in the hallway today. Consultation: Dr. Mahmood from neurology Physical examination: VITAL SIGNS: 97.2, 76, 16, 106/72, 96% room air GENERAL: Laying in bed, comfortable EYES: Pupils equal. Conjunctiva normal. HEENT: External appearance of nose and ears normal, oral cavity grossly normal. NECK: JVD not raised; masses not palpable. HEART: First and second heart sounds are normal; no edema. LUNGS: Respiratory rate normal; clear to auscultation. ABDOMEN: Soft, nontender, liver spleen not palpable, no masses palpable. PSYCH: Alert and oriented x3; mood and affect normal. NEUROLOGICAL: Cranial nerves grossly intact; no facial asymmetry, power and sensation grossly intact, no further neuro deficits INVESTIGATIONS, reviewed in the clinical context: 2-D echo negative CT angiogram negative MRI of the brain-as above Admission testing: White count 6.2 hemoglobin 13.2 platelets 180 potassium 4.4 creatinine 0.67 LDL 139 triglycerides 160 EKG tracing personally reviewed by me- normal sinus rhythm Computed tomography scan of brain-some age-related changes Chest x-ray finding-personally reviewed by me-shows some possible chronic changes Discharge diagnosis: -Possible TIA. -Chronic fibromyalgia -GERD -Hyperlipidemia -Primary osteoarthritis -Hypothyroid -Hypertensive urgency -Migraine Disposition: Home Patient Condition at Discharge: Stable Plan - Discharge Summary Discharge Rx Participant: No New Discharge Prescriptions: New Aspirin 81 mg PO DAILY chew Atorvastatin [Lipitor] 40 mg PO HS #30 tab Melatonin 3 mg PO HS tablet predniSONE 0 mg PO DIRECTED #10 tab Levothyroxine Sodium [Synthroid] 75 mcg PO DAILY #30 tab Topiramate [Topamax] 25 mg PO BID #60 tab Lisinopril-Hctz 10-12.5 mg [Zestoretic 10-12.5] 1 each PO BID #60 tab Continue Cholecalciferol [Vitamin D3 (25 Mcg = 1000 Iu)] 5,000 unit PO DAILY DULoxetine HCL [Cymbalta] 30 mg PO BID Hyoscyamine Sulfate [Levsin] 0.125 mg PO Q4H PRN PRN Reason: IBS Lansoprazole [Prevacid] 30 mg PO DAILY Discontinued Furosemide [Lasix] 20 mg PO DAILY Levothyroxine Sodium [Synthroid] 50 mcg PO DAILY No Action Testosterone Cypionate [Depo-Testosterone] 50 mg IM Q14D Discharge Medication List Cholecalciferol [Vitamin D3 (25 Mcg = 1000 Iu)] 5,000 unit PO DAILY 03/30/19 [History] DULoxetine HCL [Cymbalta] 30 mg PO BID 03/30/19 [History] Hyoscyamine Sulfate [Levsin] 0.125 mg PO Q4H PRN 03/30/19 [History] Lansoprazole [Prevacid] 30 mg PO DAILY 03/30/19 [History] Testosterone Cypionate [Depo-Testosterone] 50 mg IM Q14D 03/30/19 [History] Aspirin 81 mg PO DAILY chew 04/03/19 [Rx] Atorvastatin [Lipitor] 40 mg PO HS #30 tab 04/03/19 [Rx] Levothyroxine Sodium [Synthroid] 75 mcg PO DAILY #30 tab 04/03/19 [Rx] Lisinopril-Hctz 10-12.5 mg [Zestoretic 10-12.5] 1 each PO BID #60 tab 04/03/19 [Rx] Melatonin 3 mg PO HS tablet 04/03/19 [Rx] Topiramate [Topamax] 25 mg PO BID #60 tab 04/03/19 [Rx] predniSONE 0 mg PO DIRECTED #10 tab 04/03/19 [Rx] Follow up Appointment(s)/Referral(s): Mike Lowery MD [Primary Care Provider] - 1-2 days Amol Awan MD [STAFF PHYSICIAN] - 3 Days Discharge Disposition: HOME SELF-CARE
== END 2019-04-03 12:40 | disposition home or self-care (01) | DRG 69 ==
LOC: EC 13:30 → 3SCARD 15:12
PROVIDERS: ADMIT Hospitalist; ATTEND Hospitalist
DX: G45.9 Transient cerebral ischemic attack, unspecified (principal); I16.0 Hypertensive urgency; E03.9 Hypothyroidism, unspecified; E78.5 Hyperlipidemia, unspecified; F32.9 Major depressive disorder, single episode, unspecified; F41.9 Anxiety disorder, unspecified; G43.909 Migraine, unspecified, not intractable, without status migrainosus; K21.9 Gastro-esophageal reflux disease without esophagitis; M19.91 Primary osteoarthritis, unspecified site; M79.7 Fibromyalgia; K57.90 Diverticulosis of intestine, part unspecified, without perforation or abscess without bleeding; Z79.890 Hormone replacement therapy; Z79.899 Other long term (current) drug therapy; Z90.710 Acquired absence of both cervix and uterus; Z82.3 Family history of stroke; Z82.49 Family history of ischemic heart disease and other diseases of the circulatory system
CPT/HCPCS: 36415; 70450; 70496; 70498; 70551; 71045; 80053; 80061; 83036; 84439; 84443; 84484; 85025; 85610; 85652; 85730; 93005; 93306; 94760; 96360; 96361; 99285

== ENCOUNTER 2019-04-04 01:20 | Emergency (ER) | payer MEDICARE ==
[2019-04-04 01:35] LABS: Glucose,Whole Blood 130 mg/dL (75-99)
[2019-04-04 02:10] LABS: Basophils # (A) 0.1 k/uL (0-0.2); Basophils % (A) 1 %; Eosinophils # (A) 0.1 k/uL (0-0.7); Eosinophils % (A) 1 %; HCT 43.9 % (34.0-46.0); HGB 14.8 gm/dL (11.4-16.0); Lymphocytes # (A) 1.9 k/uL (1.0-4.8); Lymphocytes % (A) 20 %; MCH 31.6 pg (25.0-35.0); MCHC 33.8 g/dL (31.0-37.0); MCV 93.4 fL (80.0-100.0); Mean Platelet Volume 8.7; Monocytes # (A) 0.6 k/uL (0-1.0); Monocytes % (A) 6 %; Neutrophils # (A) 6.8 k/uL (1.3-7.7); Neutrophils % (A) 71 %; Platelet Count 193 k/uL (150-450); RDW 12.6 % (11.5-15.5); WBC 9.6 k/uL (3.8-10.6)
--- NOTE | 2019-04-04 02:15 | CT ---
EXAMINATION TYPE: CT brain wo con for TPA DATE OF EXAM: 04/04/2019 COMPARISON: 03/31/2019 HISTORY: weakness CT DLP: 1099.40 mGycm Automated exposure control for dose reduction was used. FINDINGS: There is some hypodensity in the periventricular white matter. There is no mass effect nor midline sh ift. There is no sign of intracranial hemorrhage. Calvarium is intact. Skull base appears intact. IMPRESSION: WHITE MATTER HYPODENSITY CONSISTENT WITH CHRONIC SMALL VESSEL ISCHEMIA UNCHANGED COMPARED TO RECENT E XAM. NO HEMORRHAGE.
--- NOTE | 2019-04-04 02:16 | XR ---
EXAMINATION TYPE: XR chest 2V DATE OF EXAM: 04/04/2019 COMPARISON: March 30, 2019 HISTORY: Weakness TECHNIQUE: Frontal and lateral views of the chest are obtained. FINDINGS: Heart and mediastinum are normal. Lungs are clear. Costophrenic angles are clear. There ar e no hilar masses. There are chest leads. Bony thorax appears intact. IMPRESSION: No active cardiopulmonary disease. No change.
[2019-04-04 02:19] LABS: African American GFR (CKD) 73 (>60 ml/min/1.73 sqM); Alcohol <10 mg/dL; Anion Gap 10 mmol/L; Blood Urea Nitrogen 19 mg/dL (7-17); Calcium 9.2 mg/dL (8.4-10.2); Carbon Dioxide 23 mmol/L (22-30); Chloride 100 mmol/L (98-107); Glucose 124 mg/dL (74-99); Sodium 133 mmol/L (137-145)
[2019-04-04 02:20] LABS: INR 0.9 (<1.2); Prothrombin Time 9.7 sec (9.0-12.0)
[2019-04-04 02:22] LABS: AST 33 U/L (14-36); Albumin 4.2 g/dL (3.5-5.0); Potassium 5.1 mmol/L (3.5-5.1); Total Bilirubin 0.8 mg/dL (0.2-1.3); Total Protein 7.1 g/dL (6.3-8.2)
[2019-04-04 02:23] LABS: ALT 18 U/L (9-52); Alkaline Phosphatase 53 U/L (38-126)
[2019-04-04 02:25] LABS: Partial Thromboplastin Time 21.3 sec (22.0-30.0)
[2019-04-04] MEDS ORDERED: SODIUM CHLORIDE 0.9% 1,000 ML IV ONE (03:33)
[2019-04-04] MEDS ORDERED: ONDANSETRON 4 MG/2 ML VIAL IVP STA (03:33)
--- NOTE | 2019-04-04 03:34 | ED ---
Dizziness HPI - General Chief Complaint: Syncope Stated Complaint: Weakness Time Seen by Provider: 04/04/19 01:31 Source: EMS Mode of arrival: EMS Limitations: no limitations - History of Present Illness Initial Comments: Patient is 68-year-old woman who presents to be evaluated following syncopal episode at home. The patient had been in the bathroom at home and had a bowel movement then while having a bowel moment she began to feel lightheaded and then she did pass out. Patient denied dyspnea, diaphoresis, chest pain or palpitations. MD Complaint: other -: minutes(s) Timing: sudden onset History of Same: No History of Trauma: No Improves With: nothing Worsens With: nothing Associated Symptoms: syncope - Related Data Home Medications Medication Instructions Recorded Confirmed Cholecalciferol [Vitamin D3 (25 5,000 unit PO DAILY 03/30/19 03/30/19 Mcg = 1000 Iu)] DULoxetine HCL [Cymbalta] 30 mg PO BID 03/30/19 03/30/19 Hyoscyamine Sulfate [Levsin] 0.125 mg PO Q4H PRN 03/30/19 03/30/19 Lansoprazole [Prevacid] 30 mg PO DAILY 03/30/19 03/30/19 Testosterone Cypionate 50 mg IM Q14D 03/30/19 03/30/19 [Depo-Testosterone] Previous Rx's Medication Instructions Recorded Aspirin 81 mg PO DAILY chew 04/03/19 Atorvastatin [Lipitor] 40 mg PO HS #30 tab 04/03/19 Levothyroxine Sodium [Synthroid] 75 mcg PO DAILY #30 tab 04/03/19 Lisinopril-Hctz 10-12.5 mg 1 each PO BID #60 tab 04/03/19 [Zestoretic 10-12.5] Melatonin 3 mg PO HS tablet 04/03/19 Topiramate [Topamax] 25 mg PO BID #60 tab 04/03/19 predniSONE 0 mg PO DIRECTED #10 tab 04/03/19 Allergies Allergy/AdvReac Type Severity Reaction Status Date / Time No Known Allergies Allergy Verified 04/04/19 01:32 Review of Systems ROS Statement: Those systems with pertinent positive or pertinent negative responses have been documented in the HPI. ROS Other: All systems not noted in ROS Statement are negative. Constitutional: Denies: fever, chills, weakness Eyes: Denies: eye pain, vision change Respiratory: Denies: cough, dyspnea, wheezes Cardiovascular: Reports: syncope. Denies: chest pain, palpitations, edema Gastrointestinal: Denies: abdominal pain, nausea, vomiting Genitourinary: Denies: dysuria, hematuria Musculoskeletal: Denies: back pain Skin: Denies: rash Neurological: Denies: headache, weakness, numbness Past Medical History Past Medical History: Fibromyalgia, GERD/Reflux, Hyperlipidemia, Osteoarthritis (OA), Thyroid Disorder Additional Past Medical History / Comment(s): pos hx h.pylori,stomach issues and sore throat,diverticulits, migraine once every few years, pt reports having stress headaches. History of Any Multi-Drug Resistant Organisms: None Reported Past Surgical History: Hysterectomy Additional Past Surgical History / Comment(s): ear prosthesis Past Anesthesia/Blood Transfusion Reactions: No Reported Reaction Past Psychological History: Anxiety, Depression Smoking Status: Never smoker Past Alcohol Use History: Abuse Past Drug Use History: None Reported - Past Family History Mother Family Medical History: Coronary Artery Disease (CAD), Myocardial Infarction (ME), Renal Disease Additional Family Medical History / Comment(s): 2012 Father Family Medical History: Congestive Heart Failure (CHF), CVA/TIA, Myocardial Infarction (ME) Additional Family Medical History / Comment(s): ME in 2006, General Exam Limitations: no limitations General appearance: alert, in no apparent distress Head exam: Present: atraumatic, normocephalic, normal inspection Eye exam: Present: normal appearance, PERRL, EOMI. Absent: scleral icterus, conjunctival injection, nystagmus ENT exam: Present: normal oropharynx Neck exam: Present: normal inspection, full ROM Respiratory exam: Present: normal lung sounds bilaterally. Absent: respiratory distress, wheezes, rales, rhonchi, stridor Cardiovascular Exam: Present: regular rate, normal rhythm, normal heart sounds. Absent: systolic murmur, diastolic murmur, rubs, gallop GI/Abdominal exam: Present: soft. Absent: distended, tenderness, guarding, rebound, rigid Extremities exam: Present: normal inspection, normal capillary refill. Absent: pedal edema, calf tenderness Back exam: Present: normal inspection. Absent: CVA tenderness (R), CVA tenderness (L) Neurological exam: Present: alert, oriented X3, CN II-XII intact. Absent: motor sensory deficit Skin exam: Present: warm, dry, intact, normal color. Absent: rash Course Vital Signs 04/04/19 04/04/19 04/04/19 01:22 03:03 03:44 Temperature 97.6 F Pulse Rate 63 66 71 Respiratory 18 17 17 Rate Blood Pressure 127/70 125/80 122/84 O2 Sat by Pulse 99 100 99 Oximetry 04/04/19 04/04/19 05:07 06:45 Temperature 97.8 F 97.8 F Pulse Rate 78 89 Respiratory 16 18 Rate Blood Pressure 120/80 119/86 O2 Sat by Pulse 95 95 Oximetry Medical Decision Making - Medical Decision Making Patient's 68-year-old woman presenting with generalized weakness and lightheadedness. The patient on reevaluation states her main complaint is some nausea. Patient's is at the bedside and states she has been having this problem every 2 weeks or so going back for 3-4 years. She had been seen by physicians in [place] at that time and they state that they were not able to find an exact etiology. Patient was told it may be due to "fibromyalgia." - Lab Data Result diagrams: 04/04/19 01:33 04/04/19 01:33 Lab Results 04/04/19 04/04/19 04/04/19 Range/Units 01:32 01:33 01:33 WBC 9.6 (3.8-10.6) k/uL RBC 4.70 (3.80-5.40) m/uL Hgb 14.8 (11.4-16.0) gm/dL Hct 43.9 (34.0-46.0) % MCV 93.4 (80.0-100.0) fL MCH 31.6 (25.0-35.0) pg MCHC 33.8 (31.0-37.0) g/dL RDW 12.6 (11.5-15.5) % Plt Count 193 (150-450) k/uL Neutrophils % 71 % Lymphocytes % 20 % Monocytes % 6 % Eosinophils % 1 % Basophils % 1 % Neutrophils # 6.8 (1.3-7.7) k/uL Lymphocytes # 1.9 (1.0-4.8) k/uL Monocytes # 0.6 (0-1.0) k/uL Eosinophils # 0.1 (0-0.7) k/uL Basophils # 0.1 (0-0.2) k/uL PT (9.0-12.0) sec INR (<1.2) APTT (22.0-30.0) sec Sodium 133 L (137-145) mmol/L Potassium 5.1 (3.5-5.1) mmol/L Chloride 100 (98-107) mmol/L Carbon Dioxide 23 (22-30) mmol/L Anion Gap 10 mmol/L BUN 19 H (7-17) mg/dL Creatinine 0.94 (0.52-1.04) mg/dL Est GFR (CKD-EPI)AfAm 73 (>60 ml/min/1.73 sqM) Est GFR (CKD-EPI)NonAf 64 (>60 ml/min/1.73 sqM) Glucose 124 H (74-99) mg/dL POC Glucose (mg/dL) 130 H (75-99) mg/dL POC Glu Dog Licenser ID Ana Maria Wolff Calcium 9.2 (8.4-10.2) mg/dL Total Bilirubin 0.8 (0.2-1.3) mg/dL AST 33 (14-36) U/L ALT 18 (9-52) U/L Alkaline Phosphatase 53 (38-126) U/L Troponin I (0.000-0.034) ng/mL Total Protein 7.1 (6.3-8.2) g/dL Albumin 4.2 (3.5-5.0) g/dL Serum Alcohol <10 mg/dL 04/04/19 04/04/19 Range/Units 01:33 01:33 WBC (3.8-10.6) k/uL RBC (3.80-5.40) m/uL Hgb (11.4-16.0) gm/dL Hct (34.0-46.0) % MCV (80.0-100.0) fL MCH (25.0-35.0) pg MCHC (31.0-37.0) g/dL RDW (11.5-15.5) % Plt Count (150-450) k/uL Neutrophils % % Lymphocytes % % Monocytes % % Eosinophils % % Basophils % % Neutrophils # (1.3-7.7) k/uL Lymphocytes # (1.0-4.8) k/uL Monocytes # (0-1.0) k/uL Eosinophils # (0-0.7) k/uL Basophils # (0-0.2) k/uL PT 9.7 (9.0-12.0) sec INR 0.9 (<1.2) APTT 21.3 L (22.0-30.0) sec Sodium (137-145) mmol/L Potassium (3.5-5.1) mmol/L Chloride (98-107) mmol/L Carbon Dioxide (22-30) mmol/L Anion Gap mmol/L BUN (7-17) mg/dL Creatinine (0.52-1.04) mg/dL Est GFR (CKD-EPI)AfAm (>60 ml/min/1.73 sqM) Est GFR (CKD-EPI)NonAf (>60 ml/min/1.73 sqM) Glucose (74-99) mg/dL POC Glucose (mg/dL) (75-99) mg/dL POC Glu Dog Licenser ID Calcium (8.4-10.2) mg/dL Total Bilirubin (0.2-1.3) mg/dL AST (14-36) U/L ALT (9-52) U/L Alkaline Phosphatase (38-126) U/L Troponin I <0.012 (0.000-0.034) ng/mL Total Protein (6.3-8.2) g/dL Albumin (3.5-5.0) g/dL Serum Alcohol mg/dL Disposition Clinical Impression: Vasovagal syncope Disposition: HOME SELF-CARE Condition: Fair Instructions (If sedation given, give patient instructions): Syncope (DC) Is patient prescribed a controlled substance at d/c from ED?: No Referrals: Mike Lowery MD [Primary Care Provider] - 1-2 days
[2019-04-04 05:08] VITALS: TEMP 97.8
[2019-04-04 06:48] VITALS: BP 119/86; PULSE 89; RESP 18
== END 2019-04-04 06:48 | disposition home or self-care (01) ==
LOC: EC 01:20
DX: R55 Syncope and collapse (principal); R11.0 Nausea; R53.1 Weakness; M79.7 Fibromyalgia; K21.9 Gastro-esophageal reflux disease without esophagitis; F32.9 Major depressive disorder, single episode, unspecified; F41.9 Anxiety disorder, unspecified; Z79.890 Hormone replacement therapy; Z79.899 Other long term (current) drug therapy; Z86.69 Personal history of other diseases of the nervous system and sense organs; Z82.3 Family history of stroke
CPT/HCPCS: 36415; 93005; 80053; 84484; 85025; 85610; 85730; 71046; 70450; 99285; 96374; 96361 ×3; G0480; J2405; 80320

== ENCOUNTER → 2019-12-05 | Outpatient (CLI) | payer MEDICARE ==
--- NOTE | 2019-12-19 13:15 | MM ---
Reason for exam: screening (asymptomatic). Last mammogram was performed 3 years and 1 month ago. History: Patient is postmenopausal. Took estrogen for 5 years. Took progesterone for 5 years. Taking other hormone for 6 months. Physical Findings: A clinical breast exam by your physician is recommended on an annual basis and results should be correlated with mammographic findings. MG Screening Mammo w CAD Bilateral CC and MLO view(s) were taken. Prior study comparison: October 30, 2016, mammogram, performed at [place]. August 10, 2014, mammogram, performed at [place]. The breast tissue is heterogeneously dense. This may lower the sensitivity of mammography. There are benign appearing round calcifications bilaterally. Asymmetric breast tissue left medially, stable. There is no discrete abnormality. ASSESSMENT: Benign, BI-RAD 2 RECOMMENDATION: Routine screening mammogram of both breasts in 1 year.
== END | disposition home or self-care (01) ==
LOC: RADMAMWWP 11:47
PROVIDERS: ATTEND Family Medicine
DX: Z12.31 Encounter for screening mammogram for malignant neoplasm of breast (principal)
CPT/HCPCS: 77067

== ENCOUNTER → 2021-03-08 | Outpatient (CLI) | payer MEDICARE ==
[2021-03-08 17:09] LABS: Basophils # (A) 0.07 X 10*3/uL (0.00-0.10); Basophils % (A) 1.8 %; Eosinophils # (A) 0.15 X 10*3/uL (0.04-0.35); Eosinophils % (A) 3.8 %; HCT 41.5 % (37.2-46.3); HGB 13.5 g/dL (12.0-15.0); Lymphocytes % (A) 35.4 %; MCH 31.6 pg (27.0-32.0); MCHC 32.5 g/dL (32.0-37.0); MCV 97.2 fL (80.0-97.0); Mean Platelet Volume 12.7 fL (9.5-12.2); Monocytes # (A) 0.35 X 10*3/uL (0.20-1.00); Monocytes % (A) 8.8 %; Neutrophils # (A) 1.98 X 10*3/uL (1.80-7.70); Neutrophils % (A) 49.9 %; Platelet Count 197 X 10*3/uL (140-440); RBC 4.27 X 10*6/uL (4.10-5.20); RDW 12.9 % (11.5-14.5); WBC 3.96 X 10*3/uL (4.50-10.00)
[2021-03-08 20:24] LABS: Hemoglobin A1C 5.4 % (4.0-6.0)
[2021-03-08 23:44] LABS: ALT 19 U/L (8-44); AST 19 U/L (13-35); African American GFR (CKD) 87.8 (60.0-200.0); Albumin/Globulin Ratio 2.47 (1.60-3.17); Alkaline Phosphatase 79 U/L (41-126); C Reactive Protein <0.4 mg/dL (0.0-0.8); Calcium 9.2 mg/dL (8.7-10.3); Carbon Dioxide 25.1 mmol/L (21.6-31.8); Chloride 106 mmol/L (96-109); Cholesterol 224 mg/dL (0-200); Creatine Kinase 62 U/L (26-186); Globulin 1.9 g/dL (1.6-3.3); Glucose 101 mg/dL (70-110); LDL Cholesterol,Calculated 116.8 mg/dL (0.0-131.0); Non-African American GFR(CKD) 75.8 (60.0-200.0); Potassium 4.3 mmol/L (3.5-5.5); Sodium 141 mmol/L (135-145); Total Bilirubin 0.6 mg/dL (0.3-1.2); Total Protein 6.6 g/dL (6.2-8.2)
== END | disposition home or self-care (01) ==
LOC: LABWHC1 09:45
PROVIDERS: ATTEND Nurse Practitioner Adult Health
DX: E78.5 Hyperlipidemia, unspecified (principal); E03.9 Hypothyroidism, unspecified; I10 Essential (primary) hypertension; R53.81 Other malaise
CPT/HCPCS: 36415; 80053; 80061; 82024; 82550; 83036; 83970; 84439; 84443; 84481; 85025; 86140

== ENCOUNTER → 2021-03-21 | Outpatient (CLI) | payer MEDICARE | END | disposition home or self-care (01) | LOC: LABWHC1 08:02 | PROVIDERS: ATTEND Nurse Practitioner Adult Health | DX: I10 Essential (primary) hypertension (principal); E03.9 Hypothyroidism, unspecified; E78.5 Hyperlipidemia, unspecified; R53.81 Other malaise | CPT/HCPCS: 36415; 82533 ==

== ENCOUNTER → 2021-03-25 | Outpatient (CLI) | payer MEDICARE ==
--- NOTE | 2021-03-27 09:54 | MM ---
Reason for exam: screening (asymptomatic). Last mammogram was performed 1 year and 4 months ago. History: Patient is postmenopausal. Took estrogen for 5 years. Took progesterone for 5 years. Taking other hormone for 6 months. Physical Findings: A clinical breast exam by your physician is recommended on an annual basis and results should be correlated with mammographic findings. MG 3D Screening Mammo W/Cad Bilateral CC and MLO view(s) were taken. Prior study comparison: December 05, 2019, bilateral MG screening mammo w CAD. October 30, 2016, mammogram, performed at [place]. August 10, 2014, mammogram, performed at [place]. The breast tissue is heterogeneously dense. This may lower the sensitivity of mammography. Central medial right CC asymmetric density is more defined but does not appear to persist on 3D images. No MLO correlate. 6 month follow up is recommended. ASSESSMENT: Probably benign, BI-RAD 3 RECOMMENDATION: Follow-up diagnostic mammogram of the right breast in 6 months.
== END | disposition home or self-care (01) ==
LOC: RADMAMWWP 14:05
PROVIDERS: ATTEND Family Medicine
DX: Z12.31 Encounter for screening mammogram for malignant neoplasm of breast (principal); Z78.0 Asymptomatic menopausal state
CPT/HCPCS: 77063; 77067

== ENCOUNTER → 2021-07-03 | Outpatient (CLI) | payer MEDICARE ==
--- NOTE | 2021-07-03 12:59 | US ---
EXAMINATION TYPE: US abdomen complete DATE OF EXAM: 07/03/2021 COMPARISON: CT 08/23/2018 CLINICAL HISTORY: 70-year-old female R10.9 ABDOMINAL PAIN. Epigastric pain EXAM MEASUREMENTS: Liver Length: 16.1 cm Gallbladder Wall: 0.21 cm CBD: 0.35 cm Spleen: 9.5 x 4.0 cm Right Kidney: 11.7 x 5.0 x 5.2 cm Left Kidney: 12.1 x 4.7 x 4.8 cm Pancreas: Obscured by bowel gas Liver: Appears wnl Gallbladder: Appears wnl Evidence for sonographic Peralta's sign: Yes CBD: wnl Spleen: wnl Kidneys: No hydronephrosis. Upper IVC: wnl Abd Aorta: wnl IMPRESSION: Suboptimal visualization of the pancreas. Otherwise, unremarkable sonographic examination of the abdo men.
== END | disposition home or self-care (01) ==
LOC: RADUSWWP 09:26
PROVIDERS: ATTEND Family Medicine
DX: R10.13 Epigastric pain (principal)
CPT/HCPCS: 76700

== ENCOUNTER → 2021-08-06 | Outpatient (CLI) | payer MEDICARE ==
--- NOTE | 2021-08-06 15:37 | NM ---
Nuclear medicine hepatobiliary scan. HISTORY: Pain. DOSAGE: The patient received 8 ounces of ensure plus and 4.4 mCi of Technetium 99m Choletec. FINDINGS: There is normal hepatic extraction. The gallbladder is seen by 10 minutes. There is bilia ry to bowel clearance by 25 minutes. Ejection fraction is 58%. IMPRESSION: 1. Normal hepatobiliary exam
== END | disposition home or self-care (01) ==
LOC: RADNMMAIN 13:06
PROVIDERS: ATTEND Family Medicine
DX: R10.11 Right upper quadrant pain (principal)
CPT/HCPCS: 78226; A9537

== ENCOUNTER → 2021-10-21 | Outpatient (CLI) | payer MEDICARE ==
--- NOTE | 2021-10-21 15:06 | MM ---
Reason for exam: follow-up at short interval from prior study. Last mammogram was performed 7 months ago. History: Patient is postmenopausal. Took estrogen for 5 years. Took progesterone for 5 years. Taking other hormone for 6 months. Physical Findings: A clinical breast exam by your physician is recommended on an annual basis and results should be correlated with mammographic findings. MG 3D Diag Mammo W/Cad RT CC and MLO view(s) were taken of the right breast. Prior study comparison: March 25, 2021, bilateral MG 3d screening mammo w/cad. December 05, 2019, bilateral MG screening mammo w CAD. The breast tissue is heterogeneously dense. This may lower the sensitivity of mammography. Focal asymmetry in the right breast, stable. No significant new findings when compared with previous films. Results were given to the patient verbally at the time of the exam. ASSESSMENT: Benign, BI-RAD 2 RECOMMENDATION: Return to routine screening mammogram schedule for both breasts. Back on schedule.
== END | disposition home or self-care (01) ==
LOC: RADMAMWWP 13:54
PROVIDERS: ATTEND Family Medicine
DX: R92.8 Other abnormal and inconclusive findings on diagnostic imaging of breast (principal); Z78.0 Asymptomatic menopausal state
CPT/HCPCS: 77065; G0279; 77061

== ENCOUNTER → 2022-10-28 | Outpatient (CLI) | payer MEDICARE ==
--- NOTE | 2022-10-28 15:27 | BD ---
EXAMINATION TYPE: Axial Bone Density DATE OF EXAM: 10/28/2022 CLINICAL HISTORY: 72 year old Female. ICD-10 CODE: Z13.820 ENCOUNTER FOR SCREENING FOR OSTEOPOROSIS Height: 66 Weight: 188.6 FRAX RISK QUESTIONS: Alcohol (3 or more units per day): no Family History (Parent hip fracture): yes Glucocorticoids (More than 3mos): yes (Ex: prednisone, prednisolone, methylprednisolone, dexamethasone, and hydrocortisone). History of Fracture in Adulthood: yes Secondary Osteoporosis: 1. Type 1 Diabetes: no 2. Hyperthyroidism: no 3. Menopause before 45: no 4. Malnutrition: no 5. Chronic liver disease: no Rheumatoid Arthritis: no Current Tobacco Use: no RISK FACTORS HISTORY OF: Surgery to Spine/Hip(right/left)/Wrist (right/left): no Family History of Osteoporosis: yes Active: no Diet low in dairy products/other sources of calcium: no Postmenopausal woman: yes Lost more than 2 inches in height since high school: no MEDICATIONS: Prednisone or other steroids: as needed for arthritis Thyroid Medications: thyroid How Lon years Additional History: EXAM MEASUREMENTS: Bone mineral densitometry was performed using the [employer]. Bone mineral density as measured about the Lumbar spine is: ----- L1-L4(G/cm2): 0.970 T Score Values are as follows: ----- L1: -1.1 ----- L2: -1.9 ----- L3: -1.5 ----- L4: -2.5 ----- L1-L4: -1.7 Z Score Values are as follows: ----- L1: -0.1 ----- L2: -0.9 ----- L3: -0.5 ----- L4: -1.5 ----- L1-L4: -0.8 Bone mineral density : baseline Bone mineral density about the R hip (g/cm2): 0.865 Bone mineral density about the L hip (g/cm2): 0.935 T Score values are as follows: -----R Neck: -1.4 -----L Neck: -1.2 -----R Total: -1.1 -----L Total: -0.6 Z Score values are as follows: -----R Neck: -0.2 -----L Neck: 0.1 -----R Total: -0.2 -----L Total: 0.4 Bone mineral density : baseline FRAX%s: The graph provided illustrates a 23.2% chance for a major osteoporotic fx and a 4.2% chance f or the hips probability for fx in 10 years time. IMPRESSION: Osteopenia (T Score between -2.5 and -1). There is slightly increased risk of fracture and the patient may be considered for treatment. Re-Screen 2-5 years. NOTE: T-SCORE=SD OF THE YOUNG ADULT MEAN.
--- NOTE | 2022-10-29 20:53 | MM ---
Reason for Exam: Screening (asymptomatic). Last mammogram was performed 1 year(s) and 8 month(s) ago. Patient History: Menarche at age 14. First Full-Term at age 21. Left ovary removed at age 48. Right ovary removed at age 48. Hysterectomy at age 48. Postmenopausal. Patient used Estrogen for 5 years. Patient used Progesterone for 5 years. Risk Values: Gabriella 5 year model risk: 1.2%. NCI Lifetime model risk: 3.7%. Prior Study Comparison: 12/05/2019 Bilateral Screening Mammogram, [facility]. 03/25/2021 Bilateral Screening Mammogram, [facility]. 10/21/2021 Right Diagnostic Mammogram, [facility]. Tissue Density: The breast tissue is heterogeneously dense. This may lower the sensitivity of mammography. Findings: Analyzed By CAD. There is no suspicious group of microcalcifications or new suspicious mass in either breast. Overall Assessment: Benign, BI-RAD 2 Management: Screening Mammogram of both breasts in 1 year. . Patient should continue monthly self-breast exams. A clinical breast exam by your physician is recommended on an annual basis. This exam should not preclude additional follow-up of suspicious palpable abnormalities. Note on Gabriella scores and lifetime risk: 1. A Gabriella score greater than 3% is considered moderate risk. If this is the case, consider specialist referral to assess eligibility for a risk reducing agent. 2. If overall lifetime risk for the development of breast cancer is 20% or higher, the patient may qualify for future screening with alternating mammogram and breast MRI. Electronically signed and approved by: Nathan Gongora M.D. Radiologist
== END | disposition home or self-care (01) ==
LOC: RADMAMWWP 13:36
PROVIDERS: ATTEND Family Medicine
DX: Z12.31 Encounter for screening mammogram for malignant neoplasm of breast (principal); Z13.820 Encounter for screening for osteoporosis; M85.89 Other specified disorders of bone density and structure, multiple sites; Z78.0 Asymptomatic menopausal state
CPT/HCPCS: 77063; 77067; 77080

== ENCOUNTER → 2022-12-02 | Outpatient (CLI) | payer MEDICARE ==
[~2022-12-02] MED LIST changes: +DOBUTamine DRIP for NUC MED 500 MG in DEXTROSE/WATER 1 250ML.BAG IV PRN; -LACTATED RINGERS 1,000 ML IV SCH; -LIDOCAINE 1% 20 ML VIAL (10MG/ML) FOR IV START INTRADERMA PRN; -MIDAZOLAM (PF) 2 MG/2 ML VIAL IV PRN
--- NOTE | 2022-12-02 13:01 | CA ---
Dobutamine Stress Echocardiogram Report Princess Dong Age: 72 Gender: F : 1950 Exam Date: 12/02/2022 10:31 Exam Location: [facility] Ordering Physician: Mike Lowery MD Referring Physician: Beverley GRIMES Bed Manager: AMBROCIO Technologist: Ht (in): 66 Wt (lb): 190 Procedure CPT: Indication: R06.00 ICD-9 Codes: Rhythm: Patient History: Dyspnea Cardiac Medications: Medications in past 24 hours: Contrast: Total Dose (mL): Stress Results Protocol: Dobutamine Peak Dose (???g/kg/min): 30 Duration (min:sec): Atropine:(mg) Target HR: 128 Double Product: [id number] Resting HR: 63 Resting BP: 152 / 101 Peak HR: 148 Peak BP: 168 / 68 Max Predicted HR: 150 99 % Max Predicted HR Stress Summary: BP Response: Reason for Termination: Exceeded target heart rate (85% max predicted) Cardiac Symptoms: Dyspnea ECG Analysis Resting EKG: Stress EKG: Arrhythmia: Echo Analysis Base Echo Analysis: Low Echo Anaylsis: Peak Echo Analysis: Recovery Echo: MEASUREMENTS (Male/Female) Normal Values CONCLUSIONS Normal EKG and echo in response to dobutamine Dr. Stevie Hollis MD (Electronically Signed) Final Date: 02 December 2022 12:59
== END | disposition home or self-care (01) ==
LOC: RADNMMAIN 09:18
PROVIDERS: ATTEND Family Medicine
DX: R06.00 Dyspnea, unspecified (principal)
CPT/HCPCS: 93351

== ENCOUNTER 2022-12-24 14:19 | Emergency (ER) | payer MEDICARE ==
[2022-12-24 14:32] VITALS: RESP 18; TEMP 98
[2022-12-24 15:05] LABS: Appearance,Urine Clear (Clear); Bilirubin,Urine Negative (Negative); Blood,Urine Negative (Negative); Color,Urine Light Yellow; Glucose,Urine (UA) Negative (Negative); Ketones,Urine 1+ (Negative); Leukocyte Esterase,Urine Negative (Negative); Nitrite,Urine Negative (Negative); Protein,Urine Negative (Negative); Specific Gravity,Urine 1.003 (1.001-1.035); Urobilinogen,Urine <2.0 mg/dL (<2.0)
[2022-12-24] MEDS ORDERED: SODIUM CHLORIDE 0.9% 1,000 ML IV STA (15:44)
--- NOTE | 2022-12-24 16:23 | ED ---
General Adult HPI - General Chief complaint: Abdominal Pain Stated complaint: abd/back pain Time Seen by Provider: 12/24/22 15:38 Source: patient, RN notes reviewed, old records reviewed Mode of arrival: ambulatory - History of Present Illness Initial comments: 72-year-old female presented for evaluation of lower abdominal pain which is bilateral and diarrhea. 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 She's had diarrhea over the past 3 days per she's had nausea without vomiting. No fever. - Related Data Home Medications Medication Instructions Recorded Confirmed DULoxetine HCL [Cymbalta] 90 mg PO DAILY 03/30/19 12/24/22 Dicyclomine [Bentyl] 20 mg PO QID PRN 12/24/22 12/24/22 Famotidine 40 mg PO DAILY 12/24/22 12/24/22 Gabapentin [Neurontin] 300 mg PO BID 12/24/22 12/24/22 Previous Rx's Medication Instructions Recorded Levothyroxine Sodium [Synthroid] 75 mcg PO DAILY #30 tab 04/03/19 HYDROcodone/APAP 5-325MG [[place] 1 tab PO Q6HR PRN #12 tab 12/24/22 5-325] Allergies Allergy/AdvReac Type Severity Reaction Status Date / Time No Known Allergies Allergy Verified 12/24/22 17:45 Review of Systems ROS Statement: Those systems with pertinent positive or pertinent negative responses have been documented in the HPI. ROS Other: All systems not noted in ROS Statement are negative. Past Medical History Past Medical History: Fibromyalgia, GERD/Reflux, Hyperlipidemia, Osteoarthritis (OA), Thyroid Disorder Additional Past Medical History / Comment(s): pos hx h.pylori,stomach issues and sore throat,diverticulits, migraine once every few years, pt reports having stress headaches. History of Any Multi-Drug Resistant Organisms: None Reported Past Surgical History: Hysterectomy Additional Past Surgical History / Comment(s): ear prosthesis Past Anesthesia/Blood Transfusion Reactions: No Reported Reaction Past Psychological History: Anxiety, Depression Smoking Status: Never smoker Past Alcohol Use History: Occasional Past Drug Use History: None Reported - Past Family History Mother Family Medical History: Coronary Artery Disease (CAD), Myocardial Infarction ([place]), Renal Disease Additional Family Medical History / Comment(s): 2012 Father Family Medical History: Congestive Heart Failure (CHF), CVA/TIA, Myocardial Infarction ([place]) Additional Family Medical History / Comment(s): [place] in 2006, General Exam General appearance: alert, in no apparent distress Head exam: Present: atraumatic, normocephalic Eye exam: Present: normal appearance, PERRL ENT exam: Present: normal exam Neck exam: Present: normal inspection. Absent: tenderness, meningismus Respiratory exam: Present: normal lung sounds bilaterally. Absent: respiratory distress, wheezes Cardiovascular Exam: Present: regular rate, normal rhythm GI/Abdominal exam: Present: soft, distended, tenderness (Lower abdomen) Extremities exam: Present: normal inspection, normal capillary refill Neurological exam: Present: alert, oriented X3, CN II-XII intact. Absent: motor sensory deficit Psychiatric exam: Present: normal affect, normal mood Skin exam: Present: warm, dry, intact. Absent: cyanosis, diaphoretic Course Vital Signs 12/24/22 12/24/22 12/24/22 14:28 16:33 16:35 Temperature 98.0 F Pulse Rate 75 61 Respiratory 18 18 Rate Blood Pressure 146/98 167/96 O2 Sat by Pulse 98 98 Oximetry - Reevaluation(s) Reevaluation #1: 12/24/22 18:00 Patient has no further diarrhea while in the emergency department. Medical Decision Making - Medical Decision Making 72-year-old female presents for evaluation of lower abdominal pain and diarrhea. Was pt. sent in by a medical professional or institution ([facility], DATA WAREHOUSE SPECIALIST, urgent care, hospital, or retirement...) When possible be specific @ -[Sent in by her starter cup powder mixer Did you speak to anyone other than the patient for history (EMS, parent, family, police, friend...)? What history was obtained from this source @ -No Did you review nursing and triage notes (agree or disagree)? Why? @ -I reviewed and agree with nursing and triage notes Were old charts reviewed (outside hosp., previous admission, EMS record, old EKG, old radiological studies, urgent care reports/EKG's, retirement records)? Report findings @ -No old charts were reviewed Differential Diagnosis (chest pain, altered mental status, abdominal pain women, abdominal pain men, vaginal bleeding, weakness, fever, dyspnea, syncope, headache, dizziness, GI bleed, back pain, seizure, CVA, palpatations, mental health, musculoskeletal)? @ -Differential Abdominal Pain Women: Appendicitis, Cholecystitis, diverticulosis, ischemic bowel, pancreatitis, hepatitis, UTI, gastroenteritis, AAA, incarcerated hernia, bowel obstruction, constipation, inflammatory bowel, hepatitis, peptic ulcer disease, splenic infarction, perforated viscus, this is not meant to be an all-inclusive list EKG interpreted by me (3pts min.). @ -As above X-rays interpreted by me (1pt min.). @ -None done CT interpreted by me (1pt min.). @ -CT showing a nonspecific colitis. U/S interpreted by me (1pt. min.). @ -None done What testing was considered but not performed or refused? (CT, X-rays, U/S, labs)? Why? @ -None What meds were considered but not given or refused? Why? @ -None Did you discuss the management of the patient with other professionals (professionals i.e. , PA, DATA WAREHOUSE SPECIALIST, lab, RT, psych nurse, psychotherapist social worker, engine generator assembler, teacher, business development officer, employment evaluator/case manager)? Give summary @ -No Was smoking cessation discussed for >3mins.? @ -No Was critical care preformed (if so, how long)? @ -No Were there social determinants of health that impacted care today? How? (Homelessness, low income, unemployed, alcoholism, drug addiction, transportation, low edu. Level, literacy, decrease access to med. care, half-way, rehab)? @ -No Was there de-escalation of care discussed even if they declined (Discuss DNR or withdrawal of care, Hospice)? DNR status @ -No What co-morbidities impacted this encounter? (DM, HTN, Smoking, COPD, CAD, Cancer, CVA, ARF, Chemo, Hep., AIDS, mental health diagnosis, sleep apnea, morbid obesity)? @ -[IBS Was patient admitted / discharged? Hospital course, mention meds given and route, prescriptions, significant lab abnormalities, going to OR and other pertinent info. @ -72-year-old female with lower abdominal pain and diarrhea. Hemodynamics are stable. No rebound or guarding. Workup reveals normal white blood cell count, normal hemoglobin, normal CMP, negative urinalysis. CT shows nonspecific colitis. Patient will be prescribed symptomatic treatment and should follow-up up with her primary care physician. Undiagnosed new problem with uncertain prognosis? @ -No Drug Therapy requiring intensive monitoring for toxicity (Heparin, Nitro, Insulin, Cardizem)? @ -No Were any procedures done? @ -No Diagnosis/symptom? @ Colitis Acute, or Chronic, or Acute on Chronic? @ -Acute Uncomplicated (without systemic symptoms) or Complicated (systemic symptoms)? @ -default Side effects of treatment? @ -No Exacerbation, Progression, or Severe Exacerbation? @ -No Poses a threat to life or bodily function? How? (Chest pain, [place], [place], pneumonia, PE, COPD, DKA, ARF, appy, cholecystitis, CVA, Diverticulitis, Homicidal, Suicidal, threat to staff... and all critical care pts) @ -[Low risk - Lab Data Result diagrams: 12/24/22 16:30 12/24/22 16:30 Lab Results 12/24/22 12/24/22 12/24/22 Range/Units 14:41 16:30 16:30 WBC 9.6 (3.8-10.6) k/uL RBC 4.25 (3.80-5.40) m/uL Hgb 13.4 (11.4-16.0) gm/dL Hct 40.0 (34.0-46.0) % MCV 94.0 (80.0-100.0) fL MCH 31.5 (25.0-35.0) pg MCHC 33.5 (31.0-37.0) g/dL RDW 12.6 (11.5-15.5) % Plt Count 181 (150-450) k/uL MPV 10.0 Neutrophils % 76 % Lymphocytes % 17 % Monocytes % 4 % Eosinophils % 1 % Basophils % 0 % Neutrophils # 7.3 (1.3-7.7) k/uL Lymphocytes # 1.6 (1.0-4.8) k/uL Monocytes # 0.4 (0-1.0) k/uL Eosinophils # 0.1 (0-0.7) k/uL Basophils # 0.0 (0-0.2) k/uL Sodium 136 L (137-145) mmol/L Potassium 4.4 (3.5-5.1) mmol/L Chloride 104 (98-107) mmol/L Carbon Dioxide 23 (22-30) mmol/L Anion Gap 9 mmol/L BUN 5 L (7-17) mg/dL Creatinine 0.60 (0.52-1.04) mg/dL Est GFR (CKD-EPI)AfAm >90 (>60 ml/min/1.73 sqM) Est GFR (CKD-EPI)NonAf >90 (>60 ml/min/1.73 sqM) Glucose 93 (74-99) mg/dL Calcium 9.1 (8.4-10.2) mg/dL Total Bilirubin 0.7 (0.2-1.3) mg/dL AST 29 (14-36) U/L ALT 19 (4-34) U/L Alkaline Phosphatase 71 (38-126) U/L Total Protein 6.4 (6.3-8.2) g/dL Albumin 4.0 (3.5-5.0) g/dL Lipase 115 (23-300) U/L Urine Color Light Yellow Urine Appearance Clear (Clear) Urine pH 5.0 (5.0-8.0) Ur Specific [place] 1.003 (1.001-1.035) Urine Protein Negative (Negative) Urine Glucose (UA) Negative (Negative) Urine Ketones 1+ H (Negative) Urine Blood Negative (Negative) Urine Nitrite Negative (Negative) Urine Bilirubin Negative (Negative) Urine Urobilinogen <2.0 (<2.0) mg/dL Ur Leukocyte Esterase Negative (Negative) Disposition Clinical Impression: Abdominal pain, Colitis Disposition: HOME SELF-CARE Condition: Fair Instructions (If sedation given, give patient instructions): Abdominal Pain (ED), Colitis (ED) Prescriptions: HYDROcodone/APAP 5-325MG [[place] 5-325] 1 tab PO Q6HR PRN #12 tab PRN Reason: Pain Is patient prescribed a controlled substance at d/c from ED?: No Referrals: Mike Lowery MD [Primary Care Provider] - 1-2 days Time of Disposition: 18:03
[2022-12-24 16:35] VITALS: PULSE 61
[2022-12-24 16:55] LABS: Basophils % (A) 0 %; Eosinophils # (A) 0.1 k/uL (0-0.7); Eosinophils % (A) 1 %; HGB 13.4 gm/dL (11.4-16.0); Lymphocytes # (A) 1.6 k/uL (1.0-4.8); Lymphocytes % (A) 17 %; MCH 31.5 pg (25.0-35.0); MCHC 33.5 g/dL (31.0-37.0); Monocytes # (A) 0.4 k/uL (0-1.0); Monocytes % (A) 4 %; Neutrophils # (A) 7.3 k/uL (1.3-7.7); Neutrophils % (A) 76 %; Platelet Count 181 k/uL (150-450); RBC 4.25 m/uL (3.80-5.40); RDW 12.6 % (11.5-15.5); WBC 9.6 k/uL (3.8-10.6)
[2022-12-24 17:09] LABS: ALT 19 U/L (4-34); AST 29 U/L (14-36); African American GFR (CKD) >90 (>60 ml/min/1.73 sqM); Alkaline Phosphatase 71 U/L (38-126); Anion Gap 9 mmol/L; Blood Urea Nitrogen 5 mg/dL (7-17); Calcium 9.1 mg/dL (8.4-10.2); Carbon Dioxide 23 mmol/L (22-30); Chloride 104 mmol/L (98-107); Glucose 93 mg/dL (74-99); Lipase 115 U/L (23-300); Non-African American GFR(CKD) >90 (>60 ml/min/1.73 sqM); Potassium 4.4 mmol/L (3.5-5.1); Sodium 136 mmol/L (137-145); Total Bilirubin 0.7 mg/dL (0.2-1.3); Total Protein 6.4 g/dL (6.3-8.2)
--- NOTE | 2022-12-24 17:45 | CT ---
EXAMINATION TYPE: CT abdomen pelvis w con DATE OF EXAM: 12/24/2022 COMPARISON: None HISTORY: lower abd pain CT DLP: 1075.5 mGycm CONTRAST: CT scan of the abdomen and pelvis is performed without Oral Contrast and with IV Contrast, patient in jected with 100ml mL of Isovue 300. FINDINGS: LUNG BASES-: No visible nodule. No infiltrate. LIVER/GB: No calcified gallstones. No space occupying hepatic lesion. Biliary tree is of normal ca liber. PANCREAS: No inflammation. No distinct mass. SPLEEN: No splenic enlargement. No lesion seen. ADRENALS: No nodule. No thickening. KIDNEYS/BLADDER: No hydronephrosis. No nephrolithiasis. No distinct renal mass. Urinary bladder g rossly unremarkable. BOWEL: Contiguous wall thickening involving the colon from the mid transverse colon through the sigmo id colon compatible with nonspecific colitis with infectious, inflammatory and vascular etiologies wi thin the differential diagnosis. There is no evidence for abscess or perforation. Right hemicolon and small bowel are of normal caliber. Nonvisualization of the appendix. GENITAL ORGANS: No gross abnormality. LYMPH NODES: No greater than 1cm abdominal or pelvic lymph nodes are appreciated. AORTA: No significant abnormality. OSSEOUS STRUCTURES: No significant abnormality is seen. OTHER: No significant additional abnormality is seen. IMPRESSION: 1. Nonspecific colitis as discussed above.
[2022-12-24] MEDS ORDERED: MORPHINE SULFATE 2 MG/ML SYRINGE IVP STA (18:00)
[2022-12-24 18:57] VITALS: BP 161/108
== END 2022-12-24 19:22 | disposition home or self-care (01) ==
LOC: EC 14:19
DX: K52.9 Noninfective gastroenteritis and colitis, unspecified (principal); M19.90 Unspecified osteoarthritis, unspecified site; F41.9 Anxiety disorder, unspecified; F32.A Depression, unspecified; Z79.899 Other long term (current) drug therapy
CPT/HCPCS: 36415; 80053; 83690; 85025; 81003; 74177; 99284; 96374; 96361 ×2; J2270; Q9967

== ENCOUNTER 2023-06-25 15:45 | Emergency (ER) | payer MEDICARE ==
--- NOTE | 2023-06-25 16:05 | ED ---
Abdominal Pain HPI - General Stated Complaint: Abd pain Source: patient Mode of arrival: EMS Limitations: no limitations - History of Present Illness MD Complaint: abdominal pain -: week(s) Location: RLQ, R flank Radiation: none Migration to: no migration Severity: moderate Quality: aching Consistency: intermittent Associated Symptoms: nausea - Related Data Home Medications Medication Instructions Recorded Confirmed DULoxetine HCL [Cymbalta] 90 mg PO DAILY 03/30/19 03/18/23 Famotidine 40 mg PO DAILY 12/24/22 03/18/23 Gabapentin [Neurontin] 300 mg PO TID 12/24/22 03/18/23 Previous Rx's Medication Instructions Recorded Levothyroxine Sodium [Synthroid] 75 mcg PO DAILY #30 tab 04/03/19 Aspirin 81 mg PO DAILY 30 Days #30 tab 03/20/23 Atorvastatin [Lipitor] 80 mg PO HS 30 Days #30 tab 03/20/23 amLODIPine [Norvasc] 5 mg PO DAILY 30 Days #30 tab 03/20/23 Cyclobenzaprine [Flexeril] 5 mg PO BID PRN 5 Days #10 tablet 06/28/23 Allergies Allergy/AdvReac Type Severity Reaction Status Date / Time No Known Allergies Allergy Verified 06/28/23 00:29 Review of Systems ROS Statement: Those systems with pertinent positive or pertinent negative responses have been documented in the HPI. ROS Other: All systems not noted in ROS Statement are negative. Constitutional: Denies: fever, chills Respiratory: Denies: cough, dyspnea Cardiovascular: Denies: chest pain, palpitations, edema, syncope Gastrointestinal: Reports: abdominal pain, nausea, vomiting, constipation. Denies: diarrhea, melena, hematochezia Genitourinary: Denies: dysuria, hematuria Musculoskeletal: Denies: back pain Skin: Denies: rash Neurological: Denies: headache, weakness, numbness Past Medical History Past Medical History: Fibromyalgia, GERD/Reflux, Hyperlipidemia, Osteoarthritis (OA), Thyroid Disorder Additional Past Medical History / Comment(s): pos hx h.pylori,stomach issues and sore throat,diverticulits, migraine once every few years, pt reports having stress headaches. History of Any Multi-Drug Resistant Organisms: None Reported Past Surgical History: Hysterectomy Additional Past Surgical History / Comment(s): ear prosthesis Past Anesthesia/Blood Transfusion Reactions: No Reported Reaction Past Psychological History: Anxiety, Depression Smoking Status: Never smoker Past Alcohol Use History: Occasional Past Drug Use History: None Reported - Past Family History Mother Family Medical History: Coronary Artery Disease (CAD), Myocardial Infarction ([place]), Renal Disease Additional Family Medical History / Comment(s): 2012 Father Family Medical History: Congestive Heart Failure (CHF), CVA/TIA, Myocardial Infarction ([place]) Additional Family Medical History / Comment(s): [place] in 2006, General Exam General appearance: alert, in no apparent distress Head exam: Present: atraumatic, normocephalic Eye exam: Present: normal appearance. Absent: scleral icterus, conjunctival injection Neck exam: Present: normal inspection Respiratory exam: Present: normal lung sounds bilaterally. Absent: respiratory distress, wheezes, rales, rhonchi, stridor Cardiovascular Exam: Present: regular rate, normal rhythm, normal heart sounds. Absent: systolic murmur, diastolic murmur, rubs, gallop GI/Abdominal exam: Present: soft, tenderness (There is some left-sided abdominal tenderness.). Absent: distended, guarding, rebound, rigid, pulsatile mass, hernia Extremities exam: Present: normal inspection, normal capillary refill. Absent: pedal edema, calf tenderness Back exam: Present: normal inspection. Absent: CVA tenderness (R), CVA tenderness (L) Neurological exam: Present: alert Skin exam: Present: warm, dry, intact, normal color. Absent: rash Course Vital Signs 06/25/23 06/25/23 19:29 19:37 Temperature 98.1 F 98.2 F Pulse Rate 84 74 Respiratory 18 16 Rate Blood Pressure 140/86 128/78 O2 Sat by Pulse 99 96 Oximetry Medical Decision Making - Medical Decision Making This 72-year-old woman presenting with abdominal pain and fullness that she states she is fairly certain as constipation. She states she has had similar episodes like this and has had constipation the past. On the exam there was some mild tenderness on the left and after discussion patient is wide have CT to rule out diverticulitis. The patient did have computed tomography scan which I interpreted as showing increased colonic stool burn. Discussed treatment options and at this point patient would like to try taking GoLYTELY at home. We discussed appropriate further care and follow-up as well as return parameters. Was pt. sent in by a medical professional or institution (Dr., PA, PREMIX CONCRETE BATCHER, urgent care, hospital, or halfway...) When possible be specific @ -[No] Did you speak to anyone other than the patient for history (EMS, parent, family, police, friend...)? What history was obtained from this source @ -[No] Did you review nursing and triage notes (agree or disagree)? Why? @ -[I reviewed and agree with nursing and triage notes] Were old charts reviewed (outside hosp., previous admission, EMS record, old EKG, old radiological studies, urgent care reports/EKG's, halfway records)? Report findings @ -[No old charts were reviewed] Differential Diagnosis (chest pain, altered mental status, abdominal pain women, abdominal pain men, vaginal bleeding, weakness, fever, dyspnea, syncope, headache, dizziness, GI bleed, back pain, seizure, CVA, palpatations, mental health, musculoskeletal)? @ -[Differential Abdominal Pain Women: Appendicitis, Cholecystitis, diverticulosis, ischemic bowel, pancreatitis, hepatitis, UTI, gastroenteritis, AAA, incarcerated hernia, bowel obstruction, constipation, inflammatory bowel, hepatitis, peptic ulcer disease, splenic infarction, perforated viscus, vulvitis, ovarian torsion, PID, kidney stone, placenta abruption, this is not meant to be an all-inclusive list EKG interpreted by me (3pts min.). @ -[ X-rays interpreted by me (1pt min.). @ -[None done] CT interpreted by me (1pt min.). @ -[I interpreted As above U/S interpreted by me (1pt. min.). @ -[None done] What testing was considered but not performed or refused? (CT, X-rays, U/S, labs)? Why? @ -[None] What meds were considered but not given or refused? Why? @ -[None] Did you discuss the management of the patient with other professionals (professionals i.e. [facility], PREMIX CONCRETE BATCHER, lab, RT, psych nurse, nursing home social worker, refurbish technician, teacher, radio division officer, case managers)? Give summary @ -[No] Was smoking cessation discussed for >3mins.? @ -[No] Was critical care preformed (if so, how long)? @ -[No] Were there social determinants of health that impacted care today? How? (Homelessness, low income, unemployed, alcoholism, drug addiction, transportation, low edu. Level, literacy, decrease access to med. care, usp, rehab)? @ -[No] Was there de-escalation of care discussed even if they declined (Discuss DNR or withdrawal of care, Hospice)? DNR status @ -[No] What co-morbidities impacted this encounter? (DM, HTN, Smoking, COPD, CAD, Cancer, CVA, ARF, Chemo, Hep., AIDS, mental health diagnosis, sleep apnea, morbid obesity)? @ -[None] Was patient admitted / discharged? Hospital course, mention meds given and route, prescriptions, significant lab abnormalities, going to OR and other pertinent info. @ -[See above Undiagnosed new problem with uncertain prognosis? @ -[No] Drug Therapy requiring intensive monitoring for toxicity (Heparin, Nitro, Insulin, Cardizem)? @ -[No] Were any procedures done? @ -[No] Diagnosis/symptom? @ -[Acute abdominal pain Constipation Acute, or Chronic, or Acute on Chronic? @ -[Acute Uncomplicated (without systemic symptoms) or Complicated (systemic symptoms)? @ -[Uncomplicated Side effects of treatment? @ -[No] Exacerbation, Progression, or Severe Exacerbation? @ -[No] Poses a threat to life or bodily function? How? (Chest pain, [place], [place], pneumonia, PE, COPD, DKA, ARF, appy, cholecystitis, CVA, Diverticulitis, Homicidal, Suicidal, threat to staff... and all critical care pts) @ -[No] Disposition Clinical Impression: Abdominal pain Disposition: HOME SELF-CARE Condition: Fair Instructions (If sedation given, give patient instructions): Constipation (ED), Abdominal Pain (ED) Is patient prescribed a controlled substance at d/c from ED?: No Referrals: Mike Lowery MD [Primary Care Provider] - 1-2 days
--- NOTE | 2023-06-25 17:11 | CT ---
EXAMINATION TYPE: CT abdomen pelvis wo con DATE OF EXAM: 06/25/2023 COMPARISON: 12/24/2022 HISTORY: 72-year-old female RLQ pain, flank pain CT DLP: 640.2 mGycm. Automated exposure control for dose reduction was used. TECHNIQUE: Contiguous axial scanning of the abdomen and pelvis without IV contrast. Coronal and sagit brook reconstructions performed. FINDINGS: Heart normal size without pericardial effusion. Tiny hiatal hernia. Calcified granuloma peripheral ri ght base. Adjacent tiny 2 mm right lower lobe pulmonary nodule unchanged. Otherwise, lung bases are c lear without pleural effusion. Noncontrast appearance of the liver, gallbladder, adrenal glands, spleen, and pancreas show no gross abnormality. Punctate 2 mm nonobstructive right renal calculus. Mild fullness of the right renal collecting system . Mild fullness of the bilateral renal collecting systems may reflect extrarenal pelvis. No ureteral stone is clearly identified. No dilated small bowel, free fluid, or free air. No mesenteric or retroperitoneal adenopathy. There is moderate overriding. Left-sided colonic diverticulosis. Greatest within the sigmoid colon. N o pericolonic inflammatory change. Appendix not discretely visualized. No secondary findings of acute appendicitis in the right lower quadrant. Prominent distention of the urinary bladder up to 10.7 cm craniocaudal and 11.0 cm wide. Multiple pel deanne phleboliths. No abnormal fluid collection in the pelvis or pelvic lymphadenopathy. Uterus surgica lly absent. Neither ovary is visualized. Bones: Mild degenerative change of the hips. Right L5 hemisacralization. Moderate degenerative disc disease throughout. Hypertrophic facet arthropathy. Degenerative grade 1 anterolisthesis L3-L4. IMPRESSION: 1. A punctate 2 mm nonobstructive right renal stone. No obstructive uropathy or ureteral stone ident ified. 2. Moderate stool burden, correlate for constipation. 3. Left-sided colonic diverticulosis, greatest in the sigmoid colon. No evidence for acute diverticu litis.
[2023-06-25] MEDS ORDERED: KETOROLAC 15 MG/ML 1 ML VIAL IM STA (18:04)
[2023-06-25] MEDS ORDERED: DICYCLOMINE 10 MG/ML 2 ML AMP IM STA (18:25)
[2023-06-25] MEDS ORDERED: PEG 3350 (236 GM/BTL) + LYTES 4,000 ML BOTTLE PO ONE (18:25)
[2023-06-25 19:53] VITALS: BP 128/78; PULSE 74; RESP 16; TEMP 98.2
== END 2023-06-25 19:39 | disposition home or self-care (01) ==
LOC: EC 15:45
DX: K59.00 Constipation, unspecified (principal); K21.9 Gastro-esophageal reflux disease without esophagitis; F41.9 Anxiety disorder, unspecified; F32.A Depression, unspecified; Z79.899 Other long term (current) drug therapy
CPT/HCPCS: 99284 ×2; 96372 ×3; 74176; J0500; J1885

== ENCOUNTER 2023-06-27 23:55 | Emergency (ER) | payer MEDICARE ==
[2023-06-28 00:42] VITALS: TEMP 98.6
--- NOTE | 2023-06-28 00:45 | ED ---
Back Pain HPI - General Source: patient Limitations: no limitations <Wayne Skaggs - Last Filed: 06/28/23 00:45> - General Source: patient, RN notes reviewed, old records reviewed <Rick Frye - Last Filed: 06/28/23 04:36> - General Chief Complaint: Back Pain/Injury Stated Complaint: Low back pain Time Seen by Provider: 06/28/23 00:45 - History of Present Illness Initial Comments: 72-year-old female presenting with chief complaint of back pain. Patient has right-sided back pain which wraps around to the groin. She was seen here on for the same issue. No injury or trauma. No loss of bowel or bladder control or saddle paresthesia. (Wayne Skaggs) Patient presents originally as a quick note. Presents with what seems to be musculoskeletal back pain. Worse with movements. Radiates from the right lower lumbar spine into the right buttock and around the thigh muscles. Worse with movement. Describes it as a spasming sensation. Has been intermittent over the last few weeks but worse over the last few days. Denies dysuria or hematuria. Denies any nausea or vomiting. Denies any chest pain or shortness of breath. No fevers or chills. Was evaluated a few days ago for similar complaints, CT was done revealed no obvious acute findings other than constipation. Presents for further evaluation at this time.Denies any saddle anesthesia, urinary bowel incontinence or retention, lower extremity paralysis. (Rick Frye) - Related Data Home Medications Medication Instructions Recorded Confirmed DULoxetine HCL [Cymbalta] 90 mg PO DAILY 03/30/19 03/18/23 Famotidine 40 mg PO DAILY 12/24/22 03/18/23 Gabapentin [Neurontin] 300 mg PO TID 12/24/22 03/18/23 Previous Rx's Medication Instructions Recorded Levothyroxine Sodium [Synthroid] 75 mcg PO DAILY #30 tab 04/03/19 Aspirin 81 mg PO DAILY 30 Days #30 tab 03/20/23 Atorvastatin [Lipitor] 80 mg PO HS 30 Days #30 tab 03/20/23 amLODIPine [Norvasc] 5 mg PO DAILY 30 Days #30 tab 03/20/23 Cyclobenzaprine [Flexeril] 5 mg PO BID PRN 5 Days #10 tablet 06/28/23 Allergies Allergy/AdvReac Type Severity Reaction Status Date / Time No Known Allergies Allergy Verified 06/28/23 00:29 Review of Systems ROS Other: All systems not noted in ROS Statement are negative. <Wayne Skaggs - Last Filed: 06/28/23 00:45> ROS Other: All systems not noted in ROS Statement are negative. <Rick Frye - Last Filed: 06/28/23 04:36> ROS Statement: Those systems with pertinent positive or pertinent negative responses have been documented in the HPI. Review of Systems: CONST: Denies fever EYES: Denies blurry vision ENT: Denies nasal congestion C/V: Denies Chest pain RESP: Denies shortness of breath GI: Denies abdominal pain : Denies dysuria SKIN: Denies rash. MSK: Endorses back pain NEURO: [Denies headache] (Rick Frye) Past Medical History Past Medical History: Fibromyalgia, GERD/Reflux, Hyperlipidemia, Osteoarthritis (OA), Thyroid Disorder Additional Past Medical History / Comment(s): pos hx h.pylori,stomach issues and sore throat,diverticulits, migraine once every few years, pt reports having stress headaches. History of Any Multi-Drug Resistant Organisms: None Reported Past Surgical History: Hysterectomy Additional Past Surgical History / Comment(s): ear prosthesis Past Anesthesia/Blood Transfusion Reactions: No Reported Reaction Past Psychological History: Anxiety, Depression Smoking Status: Never smoker Past Alcohol Use History: Occasional Past Drug Use History: None Reported - Past Family History Mother Family Medical History: Coronary Artery Disease (CAD), Myocardial Infarction ([place]), Renal Disease Additional Family Medical History / Comment(s): 2012 Father Family Medical History: Congestive Heart Failure (CHF), CVA/TIA, Myocardial Infarction ([place]) Additional Family Medical History / Comment(s): [place] in 2006, <Wayne Skaggs - Last Filed: 06/28/23 00:45> General Exam Limitations: no limitations <Wayne Skaggs - Last Filed: 06/28/23 00:45> <Rick Frye - Last Filed: 06/28/23 04:36> - General Exam Comments Initial Comments: Visual Physical Exam Vital signs reviewed General: Well-appearing, nontoxic, no acute distress. Head: Normocephalic, atraumatic Eyes: PERRLA, EOMI ENT: Airway patent Chest: Nonlabored breathing Skin: No visual rash, normal skin tone Neuro: Alert and oriented 3 Musculoskeletal: No gross abnormalities (Wayne Skaggs) General: Appears in moderate distress. HEAD: Normal with no signs of head trauma. EYES: PERRLA, EOMI, conjunctiva normal, no discharge. ENT: Hearing grossly intact, normal oropharynx. RESPIRATORY: Clear breath sounds bilaterally. No wheezes, rales, or rhonchi. C/V: Regular rate and rhythm. S1 and S2 auscultated, no edema, peripheral pulses 2+ and intact throughout ABD: Abd is soft, nontender, nondistended no guarding. No rebound tenderness. No peritoneal signs. EXT: Normal range of motion, no obvious deformity. Patient has sinus palpation of the paraspinal muscles on the right side of the lower lumbar spine with radiation of the right buttock and upper hamstring or quad muscle. SKIN: No rashes or lesions observed on exposed skin. NEURO: Alert and oriented x 4. (Rick Frye) Course Vital Signs 06/28/23 06/28/23 06/28/23 00:27 02:33 03:00 Temperature 98.6 F Pulse Rate 103 H 60 82 Respiratory 20 20 18 Rate Blood Pressure 156/112 171/98 167/92 O2 Sat by Pulse 97 98 97 Oximetry Medical Decision Making - Lab Data Result diagrams: 06/28/23 02:19 06/28/23 02:19 <Rick Frye - Last Filed: 06/28/23 04:36> - Medical Decision Making Was pt. sent in by a medical professional or institution (, PA, OFFICE TECHNICIAN, urgent care, hospital, or half-way...) When possible be specific @ -No Did you speak to anyone other than the patient for history (EMS, parent, family, police, friend...)? What history was obtained from this source @ -No Did you review nursing and triage notes (agree or disagree)? Why? @ -I reviewed and agree with nursing and triage notes Were old charts reviewed (outside hosp., previous admission, EMS record, old EKG, old radiological studies, urgent care reports/EKG's, half-way records)? Report findings @ -Old charts reviewed Differential Diagnosis (chest pain, altered mental status, abdominal pain women, abdominal pain men, vaginal bleeding, weakness, fever, dyspnea, syncope, headache, dizziness, GI bleed, back pain, seizure, CVA, palpatations, mental health, musculoskeletal)? @ -Differential Musculoskeletal Muscular strain, contusion, ligament sprain, fracture, arthritis, septic arthritis, bursitis, cellulitis, muscle spasm, nerve compression, DVT, arterial occlusion, herpes zoster, electrolyte abnormality, tumor.... This is not meant to be in all inclusive list EKG interpreted by me (3pts min.). @ -None done X-rays interpreted by me (1pt min.). @ -None done CT interpreted by me (1pt min.). @ -None done U/S interpreted by me (1pt. min.). @ -None done What testing was considered but not performed or refused? (CT, X-rays, U/S, labs)? Why? @ -None What meds were considered but not given or refused? Why? @ -None Did you discuss the management of the patient with other professionals (professionals i.e. , PA, OFFICE TECHNICIAN, lab, RT, psych nurse, social human services assistants, survey field technician, teacher, corporate trust officer, assistant case manager)? Give summary @ -No Was smoking cessation discussed for >3mins.? @ -No Was critical care preformed (if so, how long)? @ -No Were there social determinants of health that impacted care today? How? (Homelessness, low income, unemployed, alcoholism, drug addiction, transportation, low edu. Level, literacy, decrease access to med. care, long-term, rehab)? @ -No Was there de-escalation of care discussed even if they declined (Discuss DNR or withdrawal of care, Hospice)? DNR status @ -No What co-morbidities impacted this encounter? (DM, HTN, Smoking, COPD, CAD, Cancer, CVA, ARF, Chemo, Hep., AIDS, mental health diagnosis, sleep apnea, morbid obesity)? @ -None Was patient admitted / discharged? Hospital course, mention meds given and r oute, prescriptions, significant lab abnormalities, going to OR and other pertinent info. @ -Based on the patient's presentation and physical exam, presents with what appears to be a muscle strain of the lower right back. No concern for cauda equina at this time. Did receive a CT abdomen and pelvis a few days ago which was unremarkable. She was constipation. Patient presents with what appears to be musculoskeletal. I evaluated the patient. She was placed in a room. We will obtain basic labs as well as urinalysis. She was in agreement with this plan. She'll be symptomatically treated with IV fluids, lidocaine patch, IV Toradol, oral Valium, and reevaluated. Vital signs within acceptable limits. Patient's labs are unremarkable. Patient's CT from the other day revealed no obvious findings. On reevaluation, she still having the pain. She'll be given morphine as well as steroids at this time. On reevaluation, patient's pain has resolved. We discussed her workup. Appear she is having mostly skeletal back pain. She'll be discharged home with this Tylenol 3 starter pack as well as Flexeril prescription. She was in agreement with this plan. I will provide the patient with a prescription for Flexeril. I instructed the patient to follow up with their PCP in the next 1-3 days. I explained that the patient should return to the emergency department if they experience any worsening symptoms. Strict return precautions were discussed with the patient. The patient expressed understanding of these instructions. I answered all questions that the patient had. The patient was discharged home in good condition with their prescriptions and follow up information. Undiagnosed new problem with uncertain prognosis? @ -No Drug Therapy requiring intensive monitoring for toxicity (Heparin, Nitro, Insulin, Cardizem)? @ -No Were any procedures done? @ -No Diagnosis/symptom? @ -Low back strain, muscle strain Acute, or Chronic, or Acute on Chronic? @ -Acute Uncomplicated (without systemic symptoms) or Complicated (systemic symptoms)? @ -Complicated Side effects of treatment? @ -No Exacerbation, Progression, or Severe Exacerbation? @ -No Poses a threat to life or bodily function? How? (Chest pain, [place], [place], pneumonia, PE, COPD, DKA, ARF, appy, cholecystitis, CVA, Diverticulitis, Homicidal, Suicidal, threat to staff... and all critical care pts) @ -No (Rick Frye) - Lab Data Lab Results 06/28/23 06/28/23 06/28/23 Range/Units 01:01 02:19 02:19 WBC 5.4 (3.8-10.6) k/uL RBC 4.14 (3.80-5.40) m/uL Hgb 13.1 (11.4-16.0) gm/dL Hct 38.6 (34.0-46.0) % MCV 93.4 (80.0-100.0) fL MCH 31.7 (25.0-35.0) pg MCHC 34.0 (31.0-37.0) g/dL RDW 12.9 (11.5-15.5) % Plt Count 204 (150-450) k/uL MPV 9.5 Neutrophils % 57 % Lymphocytes % 31 % Monocytes % 5 % Eosinophils % 4 % Basophils % 1 % Neutrophils # 3.1 (1.3-7.7) k/uL Lymphocytes # 1.7 (1.0-4.8) k/uL Monocytes # 0.3 (0-1.0) k/uL Eosinophils # 0.2 (0-0.7) k/uL Basophils # 0.1 (0-0.2) k/uL Sodium 138 (137-145) mmol/L Potassium 3.7 (3.5-5.1) mmol/L Chloride 105 (98-107) mmol/L Carbon Dioxide 24 (22-30) mmol/L Anion Gap 9 mmol/L BUN 7 (7-17) mg/dL Creatinine 0.58 (0.52-1.04) mg/dL Est GFR (CKD-EPI)AfAm >90 (>60 ml/min/1.73 sqM) Est GFR (CKD-EPI)NonAf >90 (>60 ml/min/1.73 sqM) Glucose 130 H (74-99) mg/dL Calcium 8.9 (8.4-10.2) mg/dL Total Bilirubin 0.4 (0.2-1.3) mg/dL AST 54 H (14-36) U/L ALT 42 H (4-34) U/L Alkaline Phosphatase 82 (38-126) U/L Total Protein 6.3 (6.3-8.2) g/dL Albumin 3.9 (3.5-5.0) g/dL Urine Color Yellow Urine Appearance Clear (Clear) Urine pH 6.0 (5.0-8.0) Ur Specific [place] 1.030 (1.001-1.035) Urine Protein Trace H (Negative) Urine Glucose (UA) Negative (Negative) Urine Ketones Negative (Negative) Urine Blood Negative (Negative) Urine Nitrite Negative (Negative) Urine Bilirubin Negative (Negative) Urine Urobilinogen 3.0 (<2.0) mg/dL Ur Leukocyte Esterase Moderate H (Negative) Urine RBC 1 (0-5) /hpf Urine WBC 18 H (0-5) /hpf Ur Squamous Epith Cells <1 (0-4) /hpf Amorphous Sediment Rare H (None) /hpf Hyaline Casts 10 H (0-2) /lpf Urine Mucus Few H (None) /hpf Disposition <Wayne Skaggs - Last Filed: 06/28/23 00:45> Is patient prescribed a controlled substance at d/c from ED?: No Time of Disposition: 04:15 <Rick Frye - Last Filed: 06/28/23 04:36> Clinical Impression: Muscle strain, Strain of lumbar region Disposition: HOME SELF-CARE Condition: Good Instructions (If sedation given, give patient instructions): Acute Low Back Pain (ED) Prescriptions: Cyclobenzaprine [Flexeril] 5 mg PO BID PRN 5 Days #10 tablet PRN Reason: Pain Referrals: Mike Lowery MD [Primary Care Provider] - 1-2 days
[2023-06-28] MEDS ORDERED: SODIUM CHLORIDE 0.9% 1,000 ML IV STA (02:03)
[2023-06-28] MEDS ORDERED: diazePAM 2 MG TAB PO STA (02:03)
[2023-06-28] MEDS ORDERED: KETOROLAC 15 MG/ML 1 ML VIAL IVP STA (02:03)
[2023-06-28] MEDS ORDERED: LIDOCAINE 4% PATCH TOPICAL ONE (02:03)
[2023-06-28 02:10] LABS: Amorphous Sediment,Urine Rare /hpf; Appearance,Urine Clear (Clear); Bilirubin,Urine Negative (Negative); Blood,Urine Negative (Negative); Color,Urine Yellow; Glucose,Urine (UA) Negative (Negative); Hyaline Casts,Urine 10 /lpf (0-2); Ketones,Urine Negative (Negative); Leukocyte Esterase,Urine Moderate (Negative); Mucus,Urine Few /hpf; Nitrite,Urine Negative (Negative); Protein,Urine Trace (Negative); RBC,Urine 1 /hpf (0-5); Squamous Epithelial Cell,Urine <1 /hpf (0-4); WBC,Urine 18 /hpf (0-5)
[2023-06-28 02:27] LABS: Basophils # (A) 0.1 k/uL (0-0.2); Basophils % (A) 1 %; Eosinophils # (A) 0.2 k/uL (0-0.7); Eosinophils % (A) 4 %; HCT 38.6 % (34.0-46.0); HGB 13.1 gm/dL (11.4-16.0); Lymphocytes # (A) 1.7 k/uL (1.0-4.8); Lymphocytes % (A) 31 %; MCH 31.7 pg (25.0-35.0); MCV 93.4 fL (80.0-100.0); Mean Platelet Volume 9.5; Monocytes # (A) 0.3 k/uL (0-1.0); Monocytes % (A) 5 %; Neutrophils # (A) 3.1 k/uL (1.3-7.7); Neutrophils % (A) 57 %; Platelet Count 204 k/uL (150-450); RBC 4.14 m/uL (3.80-5.40); RDW 12.9 % (11.5-15.5); WBC 5.4 k/uL (3.8-10.6)
[2023-06-28 02:36] LABS: ALT 42 U/L (4-34); AST 54 U/L (14-36); African American GFR (CKD) >90 (>60 ml/min/1.73 sqM); Albumin 3.9 g/dL (3.5-5.0); Alkaline Phosphatase 82 U/L (38-126); Anion Gap 9 mmol/L; Blood Urea Nitrogen 7 mg/dL (7-17); Calcium 8.9 mg/dL (8.4-10.2); Carbon Dioxide 24 mmol/L (22-30); Chloride 105 mmol/L (98-107); Glucose 130 mg/dL (74-99); Non-African American GFR(CKD) >90 (>60 ml/min/1.73 sqM); Potassium 3.7 mmol/L (3.5-5.1); Sodium 138 mmol/L (137-145); Total Bilirubin 0.4 mg/dL (0.2-1.3); Total Protein 6.3 g/dL (6.3-8.2)
[2023-06-28] MEDS ORDERED: MORPHINE SULFATE 4 MG/ML SYRINGE IVP STA (03:16)
[2023-06-28] MEDS ORDERED: methylPREDNISolone SOD SUCCI 40 MG/ML 1 ML VIAL IV STA (03:16)
[2023-06-28 03:36] VITALS: RESP 18
[2023-06-28] MEDS ORDERED: ACET/COD 300 MG/30 MG STARTER PACK 6 TAB BTL PO STA (04:22)
[2023-06-28 04:47] VITALS: BP 137/86; PULSE 67
== END 2023-06-28 04:43 | disposition home or self-care (01) ==
LOC: EC 23:55
DX: S39.012A Strain of muscle, fascia and tendon of lower back, initial encounter (principal); F41.9 Anxiety disorder, unspecified; F32.A Depression, unspecified; Z79.899 Other long term (current) drug therapy; X58.XXXA Exposure to other specified factors, initial encounter
CPT/HCPCS: 36415; 80053; 85025; 81001; 87086; 99284; 96374; 96375 ×2; 96361; J2270; J2920; J1885

== ENCOUNTER → 2023-12-17 | Outpatient (CLI) | payer MEDICARE ==
--- NOTE | 2023-12-21 09:29 | MM ---
Reason for Exam: Screening (asymptomatic). Last mammogram was performed 1 year(s) and 1 month(s) ago. Patient History: Menarche at age 14. First Full-Term at age 21. Left ovary removed at age 48. Right ovary removed at age 48. Hysterectomy at age 48. Postmenopausal. Patient used Estrogen for 5 years. Patient used Progesterone for 1 year. Risk Values: Gabriella 5 year model risk: 1.3%. NCI Lifetime model risk: 3.5%. Prior Study Comparison: 03/25/2021 Bilateral Screening Mammogram, [facility]. 10/21/2021 Right Diagnostic Mammogram, [facility]. 10/28/2022 Bilateral MG 3D screening mammo w/cad, [facility]. Tissue Density: The breasts are heterogeneously dense, which may obscure small masses. Findings: Analyzed By CAD. Right breast: There is no suspicious group of microcalcifications or new suspicious mass. Left breast: There is no suspicious group of microcalcifications or new suspicious mass. Overall Assessment: Negative, BI-RAD 1 Management: Screening Mammogram of both breasts in [address] [facility] will attempt to contact patient to return for supplemental views and ultrasound if indicated. Patient should continue monthly self-breast exams. A clinical breast exam by your physician is recommended on an annual basis. This exam should not preclude additional follow-up of suspicious palpable abnormalities. Note on Gabriella scores and lifetime risk: 1. A Gabriella score greater than 3% is considered moderate risk. If this is the case, consider specialist referral to assess eligibility for a risk reducing agent. 2. If overall lifetime risk for the development of breast cancer is 20% or higher, the patient may qualify for future screening with alternating mammogram and breast MRI. Electronically signed and approved by: Cisco Durand DO
== END | disposition home or self-care (01) ==
LOC: RADMAMWWP 10:59
PROVIDERS: ATTEND Family Medicine
DX: Z12.31 Encounter for screening mammogram for malignant neoplasm of breast (principal); Z78.0 Asymptomatic menopausal state
CPT/HCPCS: 77063; 77067

== ENCOUNTER 2024-04-06 17:49 | Emergency (ER) | payer MEDICARE ==
[2024-04-06 17:58] VITALS: TEMP 97
[2024-04-06] MEDS: SODIUM CHLORIDE 0.9% 1,000 ML IV ONE (18:19)
[2024-04-06] MEDS: HYDROmorphone 0.5 MG/0.5 ML SYRINGE IVP STA (18:26)
--- NOTE | 2024-04-06 18:40 | ED ---
General Adult HPI - General Chief complaint: Nausea/Vomiting/Diarrhea Stated complaint: Abd pain Time Seen by Provider: 04/06/24 17:51 Source: patient, EMS, RN notes reviewed, old records reviewed Mode of arrival: EMS - History of Present Illness Initial comments: 73 yo female presenting with generalized abdominal pain, diarrhea and nausea. Symptoms have been present for the past 24 hours. Patient has tried Bentyl at home without relief. She reports a distended abdomen and generalized pain. No fever. - Related Data Home Medications Medication Instructions Recorded Confirmed DULoxetine HCL [Cymbalta] 90 mg PO HS 03/30/19 04/06/24 Famotidine 40 mg PO HS 12/24/22 04/06/24 Cefuroxime [Ceftin] 250 mg PO Q12H 04/06/24 04/06/24 Dicyclomine [Bentyl] 20 mg PO HS 04/06/24 04/06/24 Previous Rx's Medication Instructions Recorded Levothyroxine Sodium [Synthroid] 75 mcg PO DAILY #30 tab 04/03/19 Atorvastatin [Lipitor] 80 mg PO HS 30 Days #30 tab 03/20/23 amLODIPine [Norvasc] 5 mg PO DAILY 30 Days #30 tab 03/20/23 Allergies Allergy/AdvReac Type Severity Reaction Status Date / Time No Known Allergies Allergy Verified 04/06/24 19:25 Review of Systems ROS Statement: Those systems with pertinent positive or pertinent negative responses have been documented in the HPI. ROS Other: All systems not noted in ROS Statement are negative. Past Medical History Past Medical History: Fibromyalgia, GERD/Reflux, Hyperlipidemia, Osteoarthritis (OA), Thyroid Disorder Additional Past Medical History / Comment(s): pos hx h.pylori,stomach issues and sore throat,diverticulits, migraine once every few years, pt reports having stress headaches. History of Any Multi-Drug Resistant Organisms: None Reported Past Surgical History: Hysterectomy Additional Past Surgical History / Comment(s): ear prosthesis Past Anesthesia/Blood Transfusion Reactions: No Reported Reaction Past Psychological History: Anxiety, Depression Smoking Status: Never smoker Past Alcohol Use History: Occasional Past Drug Use History: None Reported - Past Family History Mother Family Medical History: Coronary Artery Disease (CAD), Myocardial Infarction (NE), Renal Disease Additional Family Medical History / Comment(s): 2012 Father Family Medical History: Congestive Heart Failure (CHF), CVA/TIA, Myocardial Infarction (NE) Additional Family Medical History / Comment(s): NE in 2006, General Exam General appearance: alert, in no apparent distress Head exam: Present: atraumatic, normocephalic Eye exam: Present: normal appearance, PERRL ENT exam: Present: normal exam Neck exam: Present: normal inspection. Absent: tenderness, meningismus Respiratory exam: Present: normal lung sounds bilaterally. Absent: respiratory distress, wheezes Cardiovascular Exam: Present: regular rate, normal rhythm GI/Abdominal exam: Present: soft, distended, tenderness. Absent: guarding Extremities exam: Present: normal inspection Neurological exam: Present: alert, oriented X3 Psychiatric exam: Present: normal affect, normal mood Skin exam: Present: warm, dry, intact Course Vital Signs 04/06/24 04/06/24 17:55 19:59 Temperature 97.0 F L Pulse Rate 84 89 Respiratory 22 20 Rate Blood Pressure 143/99 136/89 O2 Sat by Pulse 95 96 Oximetry Medical Decision Making - Medical Decision Making Was pt. sent in by a medical professional or institution (Dr. PA, AIR BAG BUFFER, urgent care, hospital, or custodial...) When possible be specific @ -No Did you speak to anyone other than the patient for history (EMS, parent, family, police, friend...)? What history was obtained from this source @ -No Did you review nursing and triage notes (agree or disagree)? Why? @ -I reviewed and agree with nursing and triage notes Were old charts reviewed (outside hosp., previous admission, EMS record, old EKG, old radiological studies, urgent care reports/EKG's, custodial records)? Report findings @ -No old charts were reviewed Differential Abdominal Pain Women: Appendicitis, Cholecystitis, diverticulosis, ischemic bowel, pancreatitis, hepatitis, UTI, gastroenteritis, AAA, incarcerated hernia, bowel obstruction, constipation, inflammatory bowel, hepatitis, peptic ulcer disease, splenic infarction, perforated viscus, vulvitis, ovarian torsion, PID, kidney stone, placenta abruption, this is not meant to be an all-inclusive list EKG interpreted by me (3pts min.). @Sinus rhythm rate of 76, SD interval 171, QRS duration 101, QTc [address] segment elevation. X-rays interpreted by me (1pt min.). @ -None done CT interpreted by me (1pt min.). @ -CT of the abdomen pelvis negative for acute abdominal pathology U/S interpreted by me (1pt. min.). @ -None done What testing was considered but not performed or refused? (CT, X-rays, U/S, labs)? Why? @ -None What meds were considered but not given or refused? Why? @ -None Did you discuss the management of the patient with other professionals (professionals i.e. DrBartolome, PA, [employer] BUFFER, lab, RT, psych nurse, social studies teacher, fuel cell designer, teacher, human resource officer, employment evaluator/case manager)? Give summary @ -No Was smoking cessation discussed for >3mins.? @ -No Was critical care preformed (if so, how long)? @ -No Were there social determinants of health that impacted care today? How? (Homelessness, low income, unemployed, alcoholism, drug addiction, transpor tation, low edu. Level, literacy, decrease access to med. care, group home, rehab)? @ -No Was there de-escalation of care discussed even if they declined (Discuss DNR or withdrawal of care, Hospice)? DNR status @ -No What co-morbidities impacted this encounter? (DM, HTN, Smoking, COPD, CAD, Cancer, CVA, ARF, Chemo, Hep., AIDS, mental health diagnosis, sleep apnea, morbid obesity)? @ -None Was patient admitted / discharged? Hospital course, mention meds given and route, prescriptions, significant lab abnormalities, going to OR and other pertinent info. @ -73-year-old female with generalized abdominal pain, diarrhea. Patient does admit to eating beans, bratwurst, and lazo cheesecake. Laboratory tests including CBC, CMP urinalysis unremarkable. CT of the abdomen pelvis negative for acute process. Patient reevaluated she is feeling better. She will monitor her diet, follow-up with her primary care provider. Undiagnosed new problem with uncertain prognosis? @ -No Drug Therapy requiring intensive monitoring for toxicity (Heparin, Nitro, Insulin, Cardizem)? @ -No Were any procedures done? @ -No Diagnosis/symptom? @ -Abdominal pain Acute, or Chronic, or Acute on Chronic? @ -[Acute Uncomplicated (without systemic symptoms) or Complicated (systemic symptoms)? @ -Default Side effects of treatment? @ -No Exacerbation, Progression, or Severe Exacerbation? @ -No Poses a threat to life or bodily function? How? (Chest pain, USA, NE, pneumonia, PE, COPD, DKA, ARF, appy, cholecystitis, CVA, Diverticulitis, Homicidal, Suicidal, threat to staff... and all critical care pts) @ -No - Lab Data Result diagrams: 04/06/24 18:28 04/06/24 18:28 Lab Results 04/06/24 04/06/24 04/06/24 Range/Units 18:28 18:28 18:28 WBC 6.9 (3.8-10.6) k/uL RBC 4.10 (3.80-5.40) m/uL Hgb 12.8 (11.4-16.0) gm/dL Hct 38.4 (34.0-46.0) % MCV 93.7 (80.0-100.0) fL MCH 31.3 (25.0-35.0) pg MCHC 33.4 (31.0-37.0) g/dL RDW 13.0 (11.5-15.5) % Plt Count 188 (150-450) k/uL MPV 9.8 Neutrophils % 65 % Lymphocytes % 24 % Monocytes % 5 % Eosinophils % 4 % Basophils % 1 % Neutrophils # 4.5 (1.3-7.7) k/uL Lymphocytes # 1.7 (1.0-4.8) k/uL Monocytes # 0.3 (0-1.0) k/uL Eosinophils # 0.3 (0-0.7) k/uL Basophils # 0.0 (0-0.2) k/uL PT 10.1 (10.0-12.5) sec INR 0.9 (<1.2) APTT 22.9 (22.0-30.0) sec Sodium 139 (137-145) mmol/L Potassium 3.8 (3.5-5.1) mmol/L Chloride 109 H (98-107) mmol/L Carbon Dioxide 25 (22-30) mmol/L Anion Gap 5 mmol/L BUN 12 (7-17) mg/dL Creatinine 0.67 (0.52-1.04) mg/dL Est GFR (CKD-EPI)AfAm >90 (>60 ml/min/1.73 sqM) Est GFR (CKD-EPI)NonAf 89 (>60 ml/min/1.73 sqM) Glucose 135 H (74-99) mg/dL Calcium 9.2 (8.4-10.2) mg/dL Magnesium 1.8 (1.6-2.3) mg/dL Total Bilirubin 0.5 (0.2-1.3) mg/dL AST 30 (14-36) U/L ALT 25 (4-34) U/L Alkaline Phosphatase 82 (38-126) U/L Troponin I (0.000-0.034) ng/mL Total Protein 6.0 L (6.3-8.2) g/dL Albumin 3.8 (3.5-5.0) g/dL Urine Color Urine Appearance (Clear) Urine pH (5.0-8.0) Ur Specific [place] (1.001-1.035) Urine Protein (Negative) Urine Glucose (UA) (Negative) Urine Ketones (Negative) Urine Blood (Negative) Urine Nitrite (Negative) Urine Bilirubin (Negative) Urine Urobilinogen (<2.0) mg/dL Ur Leukocyte Esterase (Negative) Urine RBC (0-5) /hpf Urine WBC (0-5) /hpf Amorphous Sediment (None) /hpf 04/06/24 04/06/24 Range/Units 18:28 18:28 WBC (3.8-10.6) k/uL RBC (3.80-5.40) m/uL Hgb (11.4-16.0) gm/dL Hct (34.0-46.0) % MCV (80.0-100.0) fL MCH (25.0-35.0) pg MCHC (31.0-37.0) g/dL RDW (11.5-15.5) % Plt Count (150-450) k/uL MPV Neutrophils % % Lymphocytes % % Monocytes % % Eosinophils % % Basophils % % Neutrophils # (1.3-7.7) k/uL Lymphocytes # (1.0-4.8) k/uL Monocytes # (0-1.0) k/uL Eosinophils # (0-0.7) k/uL Basophils # (0-0.2) k/uL PT (10.0-12.5) sec INR (<1.2) APTT (22.0-30.0) sec Sodium (137-145) mmol/L Potassium (3.5-5.1) mmol/L Chloride (98-107) mmol/L Carbon Dioxide (22-30) mmol/L Anion Gap mmol/L BUN (7-17) mg/dL Creatinine (0.52-1.04) mg/dL Est GFR (CKD-EPI)AfAm (>60 ml/min/1.73 sqM) Est GFR (CKD-EPI)NonAf (>60 ml/min/1.73 sqM) Glucose (74-99) mg/dL Calcium (8.4-10.2) mg/dL Magnesium (1.6-2.3) mg/dL Total Bilirubin (0.2-1.3) mg/dL AST (14-36) U/L ALT (4-34) U/L Alkaline Phosphatase (38-126) U/L Troponin I <0.012 (0.000-0.034) ng/mL Total Protein (6.3-8.2) g/dL Albumin (3.5-5.0) g/dL Urine Color Yellow Urine Appearance Cloudy H (Clear) Urine pH 8.0 (5.0-8.0) Ur Specific [place] 1.008 (1.001-1.035) Urine Protein Negative (Negative) Urine Glucose (UA) Negative (Negative) Urine Ketones Negative (Negative) Urine Blood Negative (Negative) Urine Nitrite Negative (Negative) Urine Bilirubin Negative (Negative) Urine Urobilinogen <2.0 (<2.0) mg/dL Ur Leukocyte Esterase Negative (Negative) Urine RBC <1 (0-5) /hpf Urine WBC 3 (0-5) /hpf Amorphous Sediment Rare H (None) /hpf Disposition Clinical Impression: Pain, abdominal Disposition: HOME SELF-CARE Condition: Fair Instructions (If sedation given, give patient instructions): Abdominal Pain (ED) Is patient prescribed a controlled substance at d/c from ED?: No Referrals: Mike Lowery MD [Primary Care Provider] - 1-2 days Time of Disposition: 20:56
[2024-04-06 18:52] LABS: Basophils % (A) 1 %; Eosinophils # (A) 0.3 k/uL (0-0.7); Eosinophils % (A) 4 %; HCT 38.4 % (34.0-46.0); HGB 12.8 gm/dL (11.4-16.0); Lymphocytes # (A) 1.7 k/uL (1.0-4.8); Lymphocytes % (A) 24 %; MCH 31.3 pg (25.0-35.0); MCHC 33.4 g/dL (31.0-37.0); MCV 93.7 fL (80.0-100.0); Mean Platelet Volume 9.8; Monocytes # (A) 0.3 k/uL (0-1.0); Monocytes % (A) 5 %; Neutrophils # (A) 4.5 k/uL (1.3-7.7); Neutrophils % (A) 65 %; Platelet Count 188 k/uL (150-450); WBC 6.9 k/uL (3.8-10.6)
[2024-04-06 18:58] LABS: INR 0.9 (<1.2); Partial Thromboplastin Time 22.9 sec (22.0-30.0); Prothrombin Time 10.1 sec (10.0-12.5)
[2024-04-06 19:27] LABS: ALT 25 U/L (4-34); AST 30 U/L (14-36); African American GFR (CKD) >90 (>60 ml/min/1.73 sqM); Albumin 3.8 g/dL (3.5-5.0); Alkaline Phosphatase 82 U/L (38-126); Amorphous Sediment,Urine Rare /hpf; Anion Gap 5 mmol/L; Appearance,Urine Cloudy (Clear); Bilirubin,Urine Negative (Negative); Blood Urea Nitrogen 12 mg/dL (7-17); Blood,Urine Negative (Negative); Calcium 9.2 mg/dL (8.4-10.2); Carbon Dioxide 25 mmol/L (22-30); Chloride 109 mmol/L (98-107); Color,Urine Yellow; Glucose 135 mg/dL (74-99); Glucose,Urine (UA) Negative (Negative); Ketones,Urine Negative (Negative); Leukocyte Esterase,Urine Negative (Negative); Magnesium 1.8 mg/dL (1.6-2.3); Nitrite,Urine Negative (Negative); Non-African American GFR(CKD) 89 (>60 ml/min/1.73 sqM); Potassium 3.8 mmol/L (3.5-5.1); Protein,Urine Negative (Negative); RBC,Urine <1 /hpf (0-5); Sodium 139 mmol/L (137-145); Specific Gravity,Urine 1.008 (1.001-1.035); Total Bilirubin 0.5 mg/dL (0.2-1.3); Urobilinogen,Urine <2.0 mg/dL (<2.0); WBC,Urine 3 /hpf (0-5)
--- NOTE | 2024-04-06 20:44 | CT ---
EXAMINATION TYPE: CT abdomen pelvis w con CT DLP: 1131.8 mGycm, Automated exposure control for dose reduction was used. DATE OF EXAM: 04/06/2024 7:59 PM COMPARISON: 06/25/2023 CLINICAL INDICATION:Female, 73 years old with history of B Pain; abdominal pain and diarrhea TECHNIQUE: Axial CT of the abdomen and pelvis. Sagittal and coronal reformats were created on a [employer] workstation. Contrast used:100 ml mL of Isovue 370 with IV Contrast, (none if empty) Oral contrast used: without Oral Contrast (none if empty) FINDINGS: LOWER CHEST: Lung bases are clear. ABDOMEN LIVER: Unremarkable GALLBLADDER AND BILE DUCTS: The gallbladder appears mildly distended without evidence of calcified st ones. PANCREAS: Unremarkable. SPLEEN: Unremarkable. ADRENAL GLANDS: Unremarkable. KIDNEYS AND URETERS: Kidneys enhance symmetrically. No evidence of hydronephrosis or visible renal ca lculus. The ureters are unremarkable. PELVIS BLADDER: Mildly distended, otherwise unremarkable. REPRODUCTIVE: Organs not seen likely absent. ABDOMEN & PELVIS STOMACH AND BOWEL: Stomach and small bowel are nondistended, no evidence of obstruction. The append ix is not seen with certainty but there is no inflammatory process seen in the pericecal region. The re is a moderate to large amount of stool throughout the colon, correlate for constipation. Colonic diverticula are present which do not appear inflamed. PERITONEUM/RETROPERITONEUM: No evidence of pneumoperitoneum or free fluid. VASCULATURE: Mild atherosclerotic calcifications are present throughout the abdominal aorta and its b ranches. No evidence of aortic aneurysm. Portal veins are enhancing. Splenic and mesenteric veins a re patent. LYMPH NODES: No enlarged nodes by CT size criteria. SOFT TISSUE/ABDOMINAL WALL: Unremarkable MUSCULOSKELETAL: No acute abnormality. Generalized osteopenia and mild degenerative changes. Small sc lerotic density left L5 transverse process. L5 is mostly sacralized. Mild S-shaped lumbar scoliosis. IMPRESSION: 1. No clearly acute abnormality demonstrated in the abdomen and pelvis. 2. Other findings as above. [facility], , 04/06/2024 8:41 PM
[2024-04-06 21:08] VITALS: BP 146/113; PULSE 64; RESP 18
== END 2024-04-06 21:21 | disposition home or self-care (01) ==
LOC: EC 17:49
DX: R10.84 Generalized abdominal pain (principal)
CPT/HCPCS: 36415; 51701; 51798; 74177; 80053; 81001; 83735; 84484; 85025; 85610; 85730; 93005; 96361; 96374; 99285